=== PATIENT | female | born 1950 | race Caucasian/White ===

== ENCOUNTER 2020-01-31 12:17 | Outpatient (CLI) | payer MEDICARE, SELFPAY ==
--- NOTE | 2020-01-31 12:50 | ECHO_ITS ---
Patient Info Name: Ioana Tate Age: 69 years : 1950 Gender: Female Ht: 66 in Wt: 238 lbs BSA: 2.29 m2 HR: 90 bpm BP: 150 / 80 mmHg Heart Rhythm: Sinus Rhythm Technical Quality: Good Exam Date: 01/31/2020 12:57 PM Exam Location: [facility] Patient Status: Outpatient Admit Date: 01/31/2020 Staff Ordering Physician: Cruz Momin DO Amusement Park Entertainer: Ameya Fox RDCS Attending Provider: Cruz Momin DO Referring Physician: Liliane HORAN; Exam Type: CA echo doppler color flow Study Info Indications I35.2 - Nonrheumatic aortic (valve) stenosis with insufficiency Complete two-dimensional, color flow and Doppler transthoracic echocardiogram is performed. History/Risk Factors Murmur. Summary 1. Complete two-dimensional, color flow and Doppler transthoracic echocardiogram is performed. 2. Left ventricular chamber dimension is normal. 3. Left ventricular systolic function is normal, estimated at 60-65%. 4. There is moderately increased left ventricular wall thickness. 5. The left ventricular diastolic function is grade I diastolic dysfunction. 6. E/e' 7 is not elevated. 7. Left atrial chamber dimension is mildly enlarged. 8. There is severe aortic valve sclerosis. 9. There is moderate aortic valve stenosis with a peak velocity of 261 cm/s, mean gradient of 15 mmHg, and aortic valve area of 1.3 cm2. 10. There is trace aortic valve regurgitation. 11. The mitral valve has moderately calcified annulus. 12. There is trace tricuspid valve regurgitation. 13. Moderate pulmonary hypertension, estimated pulmonary arterial systolic pressure is 50 mmHg. 14. There is trace pulmonic regurgitation. Left Ventricle E/e' 7 is not elevated. Left ventricular chamber dimension is normal. Left ventricular systolic function is normal, estimated at 60-65%. There is moderately increased left ventricular wall thickness. The left ventricular diastolic function is grade I diastolic dysfunction. Right Ventricle Right ventricular chamber dimension is normal. Right ventricular systolic function is normal. Left Atria Left atrial chamber dimension is mildly enlarged. Right Atria Right atrial chamber dimension is normal. Aortic Valve The aortic valve is trileaflet. There is severe aortic valve sclerosis. There is moderate aortic valve stenosis with a peak velocity of 261 cm/s, mean gradient of 15 mmHg, and aortic valve area of 1.3 cm2. There is trace aortic valve regurgitation. Pulmonic Valve There is trace pulmonic regurgitation. Mitral Valve The mitral valve has moderately calcified annulus. There is no mitral valve stenosis. There is no mitral valve regurgitation. Tricuspid Valve There is trace tricuspid valve regurgitation. Moderate pulmonary hypertension, estimated pulmonary arterial systolic pressure is 50 mmHg. Pericardium/Pleural There is no pericardial effusion. Inferior Vena Cava Normal inferior vena cava with >50% collapse upon inspiration consistent with normal right atrial pressure, 5 mmHg. Aorta The aortic root size at the sinus of Valsalva is normal. Left Ventricular Outflow Tract Name Value Normal LVOT 2D LVOT Diameter 2.0 cm
== END 2020-01-31 12:18 | disposition home or self-care (01) ==
PROVIDERS: PCP Internal Medicine; Visit Provider Internal Medicine
DX: I35.2 Nonrheumatic aortic (valve) stenosis with insufficiency (principal); I27.20 Pulmonary hypertension, unspecified
CPT/HCPCS: 93306

== ENCOUNTER 2020-03-17 09:40 | Outpatient (CLI) | payer MEDICARE, SELFPAY ==
[2020-03-17 10:08] LABS: Anion Gap 8 mmol/L (8-16); Blood Urea Nitrogen 21 mg/dL (7-17); Calcium 9.9 mg/dL (8.4-10.2); Carbon Dioxide 26 mmol/L (22-30); Chloride 105 mmol/L (98-107); Estimated Glomerular Filt Rate 40; Glucose 102 mg/dL (65-105); Potassium 4.5 mmol/L (3.4-5.0); Sodium 139 mmol/L (137-145)
== END 2020-03-17 09:41 | disposition home or self-care (01) ==
PROVIDERS: PCP Internal Medicine; Visit Provider Clinical Nurse Specialist
DX: N18.9 Chronic kidney disease, unspecified (principal); I12.9 Hypertensive chronic kidney disease with stage 1 through stage 4 chronic kidney disease, or unspecified chronic kidney disease
CPT/HCPCS: 36415; 80048

== ENCOUNTER 2020-06-14 09:08 | Outpatient (CLI) | payer MEDICARE, SELFPAY ==
[2020-06-14 09:27] LABS: Basophils Absolute Auto 0.1 K/mm3 (0.0-0.1); Basophils Percent Auto 0.9 % (0.2-1.2); Eosinophils Absolute Auto 0.3 K/mm3 (0-0.3); Eosinophils Percent Auto 3.3 % (0-4.4); Hematocrit 39.2 % (37.0-47.0); Hemoglobin 12.9 g/dL (12.0-15.0); Immature Granulocyte Absolute 0.04 K/mm3 (0.00-0.031); Immature Granulocyte Percent A 0.5 % (0-0.5); Lymphocytes Absolute Auto 1.32 K/mm3 (0.9-3.2); Lymphocytes Percent Auto 15.1 % (18.3-44.2); Mean Corpuscular HGB Conc 32.9 g/dl (32-36); Mean Corpuscular Hemoglobin 31.6 pg (26-34); Mean Corpuscular Volume 96.1 fl (80-100); Mean Platelet Volume 8.8 fl (7.4-10.4); Monocytes Absolute Auto 0.9 K/mm3 (0.1-0.6); Neutrophils Absolute Auto 6.2 K/mm3 (1.3-6.7); Neutrophils Percent Auto 70.2 % (45.5-73.1); Platelet Count Result 312 k/mm3 (150-375); Red Blood Count 4.08 M/mm3 (4.2-5.4); Red Cell Distribution Width 13.7 % (11.5-14.5); White Blood Count 8.8 K/mm3 (4.5-10.0)
[2020-06-14 10:16] LABS: Thyroid Stimulating Hormone 0.985 uIU/mL (0.465-4.680)
== END 2020-06-14 09:09 | disposition home or self-care (01) ==
PROVIDERS: PCP Internal Medicine; Visit Provider Internal Medicine
DX: E03.9 Hypothyroidism, unspecified (principal); N18.9 Chronic kidney disease, unspecified; K31.819 Angiodysplasia of stomach and duodenum without bleeding
CPT/HCPCS: 36415; 84443; 85025

== ENCOUNTER 2020-09-01 08:38 | Outpatient (CLI) | payer MEDICARE, SELFPAY ==
[2020-09-01 09:03] LABS: Anion Gap 7 mmol/L (8-16); Blood Urea Nitrogen 21 mg/dL (7-17); Calcium 9.8 mg/dL (8.4-10.2); Carbon Dioxide 26 mmol/L (22-30); Chloride 108 mmol/L (98-107); Cholesterol 171 mg/dL (0-200); Estimated Glomerular Filt Rate 40; Glucose 102 mg/dL (65-105); HDL Direct 40 mg/dL; Potassium 4.6 mmol/L (3.4-5.0); Sodium 141 mmol/L (137-145); Triglycerides 143 mg/dL (<150)
[2020-09-01 09:13] LABS: LDL Cholesterol Direct 93 mg/dL
== END 2020-09-01 08:39 | disposition home or self-care (01) ==
PROVIDERS: PCP Internal Medicine; Visit Provider Internal Medicine
DX: N18.9 Chronic kidney disease, unspecified (principal); I35.0 Nonrheumatic aortic (valve) stenosis
CPT/HCPCS: 36415; 80048; 80061

== ENCOUNTER 2021-01-19 08:25 | Outpatient (CLI) | payer MEDICARE, SELFPAY ==
[2021-01-19 09:01] LABS: Basophils Absolute Auto 0.1 K/mm3 (0.0-0.1); Basophils Percent Auto 0.7 % (0.2-1.2); Eosinophils Absolute Auto 0.3 K/mm3 (0-0.3); Eosinophils Percent Auto 4.1 % (0-4.4); Hematocrit 38.6 % (37.0-47.0); Hemoglobin 12.4 g/dL (12.0-15.0); Immature Granulocyte Absolute 0.02 K/mm3 (0.00-0.031); Immature Granulocyte Percent A 0.2 % (0-0.5); Lymphocytes Absolute Auto 1.34 K/mm3 (0.9-3.2); Mean Corpuscular HGB Conc 32.1 g/dl (32-36); Mean Corpuscular Hemoglobin 31.3 pg (26-34); Mean Corpuscular Volume 97.5 fl (80-100); Mean Platelet Volume 8.8 fl (7.4-10.4); Monocytes Absolute Auto 0.9 K/mm3 (0.1-0.6); Monocytes Percent Auto 11.1 % (2.6-8.5); Neutrophils Absolute Auto 5.7 K/mm3 (1.3-6.7); Neutrophils Percent Auto 67.9 % (45.5-73.1); Platelet Count Result 297 k/mm3 (150-375); Red Blood Count 3.96 M/mm3 (4.2-5.4); Red Cell Distribution Width 13.7 % (11.5-14.5); White Blood Count 8.4 K/mm3 (4.5-10.0)
[2021-01-19 09:16] LABS: Alanine Aminotransferase 8 U/L (4-35); Albumin Level 4.3 g/dL (3.5-5.1); Alkaline Phosphatase 56 U/L (38-126); Anion Gap 10 mmol/L (8-16); Aspartate Amino Transferase 22 U/L (14-36); Bilirubin,Total 0.7 mg/dL (0.2-1.3); Blood Urea Nitrogen 24 mg/dL (7-17); Calcium 9.9 mg/dL (8.4-10.2); Carbon Dioxide 21 mmol/L (22-30); Chloride 107 mmol/L (98-107); Estimated Glomerular Filt Rate 40; Glucose 103 mg/dL (65-110); Potassium 4.8 mmol/L (3.4-5.0); Sodium 138 mmol/L (137-145)
== END 2021-01-19 08:26 | disposition home or self-care (01) ==
PROVIDERS: PCP Internal Medicine; Visit Provider Internal Medicine
DX: N18.9 Chronic kidney disease, unspecified (principal); D64.9 Anemia, unspecified
CPT/HCPCS: 36415; 80053; 85025

== ENCOUNTER 2021-07-13 08:38 | Outpatient (CLI) | payer MEDICARE, SELFPAY ==
[2021-07-13 09:39] LABS: Basophils Absolute Auto 0.1 K/mm3 (0.0-0.1); Eosinophils Absolute Auto 0.4 K/mm3 (0-0.3); Eosinophils Percent Auto 4.6 % (0-4.4); Hematocrit 39.8 % (37.0-47.0); Hemoglobin 12.8 g/dL (12.0-15.0); Immature Granulocyte Absolute 0.02 K/mm3 (0.00-0.031); Immature Granulocyte Percent A 0.2 % (0-0.5); Lymphocytes Absolute Auto 1.27 K/mm3 (0.9-3.2); Lymphocytes Percent Auto 15.6 % (18.3-44.2); Mean Corpuscular HGB Conc 32.2 g/dl (32-36); Mean Corpuscular Hemoglobin 31.2 pg (26-34); Mean Corpuscular Volume 97.1 fl (80-100); Mean Platelet Volume 9.5 fl (7.4-10.4); Monocytes Absolute Auto 0.8 K/mm3 (0.1-0.6); Monocytes Percent Auto 10.1 % (2.6-8.5); Neutrophils Absolute Auto 5.6 K/mm3 (1.3-6.7); Neutrophils Percent Auto 68.5 % (45.5-73.1); Platelet Count Result 316 k/mm3 (150-375); Red Cell Distribution Width 13.6 % (11.5-14.5); White Blood Count 8.1 K/mm3 (4.5-10.0)
[2021-07-13 09:52] LABS: Alanine Aminotransferase 8 U/L (4-35); Albumin Level 4.3 g/dL (3.5-5.1); Alkaline Phosphatase 63 U/L (38-126); Anion Gap 11 mmol/L (8-16); Aspartate Amino Transferase 24 U/L (14-36); Bilirubin,Total 0.7 mg/dL (0.2-1.3); Blood Urea Nitrogen 24 mg/dL (7-17); Calcium 9.3 mg/dL (8.4-10.2); Carbon Dioxide 22 mmol/L (22-30); Chloride 107 mmol/L (98-107); Cholesterol 180 mg/dL (0-200); Estimated Glomerular Filt Rate 40; Glucose 93 mg/dL (65-110); HDL Direct 38 mg/dL; Potassium 4.7 mmol/L (3.4-5.0); Sodium 140 mmol/L (137-145); Triglycerides 144 mg/dL (<150)
[2021-07-13 10:03] LABS: LDL Cholesterol Direct 97 mg/dL
[2021-07-13 10:20] LABS: Thyroid Stimulating Hormone 0.645 uIU/mL (0.465-4.680)
[2021-07-13 10:25] LABS: Vitamin D 25 Hydroxy 38.2 ng/mL
== END 2021-07-13 08:39 | disposition home or self-care (01) ==
PROVIDERS: PCP Internal Medicine; Visit Provider Internal Medicine
DX: N18.32 Chronic kidney disease, stage 3b (principal); I35.0 Nonrheumatic aortic (valve) stenosis; E03.9 Hypothyroidism, unspecified; D64.9 Anemia, unspecified; E55.9 Vitamin D deficiency, unspecified
CPT/HCPCS: 36415; 80053; 80061; 82306; 84443; 85025

== ENCOUNTER 2022-01-18 09:04 | Outpatient (CLI) | payer MEDICARE, SELFPAY ==
[2022-01-18 09:22] LABS: Basophils Absolute Auto 0.1 K/mm3 (0.0-0.1); Basophils Percent Auto 1.1 % (0.2-1.2); Eosinophils Absolute Auto 0.4 K/mm3 (0-0.3); Eosinophils Percent Auto 3.8 % (0-4.4); Hematocrit 40.9 % (37.0-47.0); Hemoglobin 13.3 g/dL (12.0-15.0); Immature Granulocyte Absolute 0.03 K/mm3 (0.00-0.031); Immature Granulocyte Percent A 0.3 % (0-0.5); Lymphocytes Absolute Auto 1.31 K/mm3 (0.9-3.2); Lymphocytes Percent Auto 14.3 % (18.3-44.2); Mean Corpuscular HGB Conc 32.5 g/dl (32-36); Mean Corpuscular Hemoglobin 31.1 pg (26-34); Mean Corpuscular Volume 95.6 fl (80-100); Mean Platelet Volume 9.1 fl (7.4-10.4); Monocytes Absolute Auto 0.9 K/mm3 (0.1-0.6); Monocytes Percent Auto 9.4 % (2.6-8.5); Neutrophils Absolute Auto 6.5 K/mm3 (1.3-6.7); Neutrophils Percent Auto 71.1 % (45.5-73.1); Platelet Count Result 323 k/mm3 (150-375); Red Blood Count 4.28 M/mm3 (4.2-5.4); Red Cell Distribution Width 14.2 % (11.5-14.5); White Blood Count 9.2 K/mm3 (4.5-10.0)
[2022-01-18 09:43] LABS: Alanine Aminotransferase 9 U/L (6-35); Albumin Level 4.3 g/dL (3.5-5.1); Alkaline Phosphatase 58 U/L (38-126); Anion Gap 15 mmol/L (8-16); Aspartate Amino Transferase 18 U/L (14-36); Bilirubin,Total 0.8 mg/dL (0.2-1.3); Blood Urea Nitrogen 20 mg/dL (7-17); Calcium 9.2 mg/dL (8.4-10.2); Carbon Dioxide 21 mmol/L (22-30); Chloride 104 mmol/L (98-107); Estimated Glomerular Filt Rate 34; Glucose 106 mg/dL (65-110); Potassium 4.4 mmol/L (3.4-5.0); Sodium 140 mmol/L (137-145)
[2022-01-18 10:12] LABS: Thyroid Stimulating Hormone 0.112 uIU/mL (0.465-4.680)
== END 2022-01-18 09:05 | disposition home or self-care (01) ==
LOC: ANHLAB 09:05
PROVIDERS: PCP Internal Medicine; Visit Provider Internal Medicine
DX: K31.819 Angiodysplasia of stomach and duodenum without bleeding (principal); N18.32 Chronic kidney disease, stage 3b; E03.9 Hypothyroidism, unspecified
CPT/HCPCS: 36415; 80053; 84443; 85025

== ENCOUNTER 2022-03-05 08:30 | Outpatient (CLI) | payer MEDICARE, SELFPAY ==
[2022-03-05 09:12] LABS: Anion Gap 14 mmol/L (8-16); Blood Urea Nitrogen 17 mg/dL (7-17); Calcium 8.7 mg/dL (8.4-10.2); Carbon Dioxide 24 mmol/L (22-30); Chloride 100 mmol/L (98-107); Estimated Glomerular Filt Rate 40; Glucose 105 mg/dL (65-110); Potassium 3.8 mmol/L (3.4-5.0); Sodium 138 mmol/L (137-145)
[2022-03-05 09:24] LABS: Add Urine Microscopic? YES; Appearance Urine Cloudy (Clear); Bacteria Urine 4+ /hpf; Bilirubin Urine Negative (Negative); Blood Urine Negative (Negative); Color Urine Yellow (Yellow); Glucose Urine UA Negative (Negative); Ketones Urine Negative (Negative); Leukocyte Esterase Ur 3+ LEU/UL (NEGATIVE); Mucus Urine Rare /lpf; Nitrate Urine Negative (Negative); Protein Urine Negative (Negative); Specific Grav Ur 1.014 (1.001-1.035); Squamous Epithelial Cell Urine Few /hpf (Few); Urobilinogen Urine Negative mg/dL (<2.0); WBC Clumps Urine Present /HPF; WBC Urine >75 /hpf (0-3)
[2022-03-05 10:20] LABS: Hepatitis C Virus Antibody Negative (Negative)
[2022-03-07 19:01] LABS: Albumin 3.6 g/dL (3.8-4.8); Alpha 1 Globulin 0.5 g/dL (0.2-0.3); Alpha 2 Globulin 1.2 g/dL (0.5-0.9); Beta 1 Globulin 0.4 g/dL (0.4-0.6); Gamma Globulin 1.5 g/dL (0.8-1.7); Protein, Total 7.5 g/dL (6.1-8.1)
== END 2022-03-05 08:31 | disposition home or self-care (01) ==
LOC: ANHLAB 08:32
PROVIDERS: PCP Internal Medicine; Visit Provider Internal Medicine
DX: N18.9 Chronic kidney disease, unspecified (principal)
CPT/HCPCS: 36415; 80048; 81001; 82570; 84155; 84156; 84165; 84166; 86803

== ENCOUNTER 2022-03-06 07:37 | Outpatient (NON) | payer MEDICARE, SELFPAY ==
[2022-03-11 15:55] LABS: Total Protein/Creatinine Ratio 275 mg/g creat (24-184)
[2022-03-15 14:34] LABS: Creatinine, Random Urine 40 mg/dL
== END 2022-03-06 07:38 | disposition home or self-care (01) ==
LOC: ANHLAB 07:42
PROVIDERS: PCP Internal Medicine; Visit Provider Internal Medicine
DX: N18.9 Chronic kidney disease, unspecified (principal)
CPT/HCPCS: 82570; 84156; 84166

== ENCOUNTER 2022-03-06 07:56 | Outpatient (CLI) | payer MEDICARE, SELFPAY ==
--- NOTE | ~2022-03-06 | US_ITS ---
EXAMINATION: US retroperitoneal duplex ltd DATE: 03/06/2022 11:52 CDT INDICATION: Accelerated hypertension. TECHNIQUE: Sonographic imaging of the kidneys was performed with a 3.5 MHz transducer. Retroperitone al duplex sonogram of the renal arteries also obtained. FINDINGS: No focal flow abnormalities are seen in the renal arteries on color Doppler. The peak syst olic velocity ranges of the right and left renal arteries and aorta are 81 cm per second, 87 cm per s econd, and 111 cm per second, respectively. The velocities and renal to aortic ratios are within norm al limits. IMPRESSION: 1. No Doppler evidence of renal artery stenosis. Reviewed, dictated and finalized at location B.
== END 2022-03-06 07:57 | disposition home or self-care (01) ==
PROVIDERS: PCP Internal Medicine; Visit Provider Nurse Practitioner
DX: I10 Essential (primary) hypertension (principal); R60.0 Localized edema; R79.89 Other specified abnormal findings of blood chemistry
CPT/HCPCS: 82570; 84156; 84166; 93976

== ENCOUNTER 2022-06-05 08:06 | Outpatient (CLI) | payer MEDICARE, SELFPAY ==
--- NOTE | 2022-06-30 21:32 | WPDSLEEPSTUD ---
Sleep Study Date of Study: 06/05/22 Ordering Provider: Cruz Momin DO Interpreting Physician: Eve Lopez DO Sleep Study Type: Polysomnogram Height: 1.68 m Weight: 83.461 kg Body Mass Index: 29.7 Neck Circumference (inches): 16 [place]: 3 Reason for Sleep Study Loud snoring, frequent nighttime awakenings Sleep History The patient is a 72 year female with hypertension, hypothyroidism, anemia, aortic stenosis, chronic kidney disease, pulmonary hypertension and history of tobacco use that had a sleep study ordered by her primary care for evaluation of sleep apnea. The patient denies awakening from sleep short of breath. She denies awakening at night with heartburn, belching or cough. She occasionally snores loudly enough that others complain. She rarely has trouble sleeping when she has a cold. She denies waking up gasping for air throughout the night. She denies having breathing problems at night observed by herself or others. She denies sweating excessively at night. She denies having heart palpitations or irregular heartbeats during the night. She denies falling asleep during the day and while driving. She denies sleep paralysis, cataplexy and hypnagogic / hypnopompic hallucinations. He denies having trouble at school or work due to sleepiness. She denies stool was freed of going to sleep. She rarely has nightmares. She denies remembering her dreams. She frequently has thoughts racing through her mind. She occasionally feels sad or depressed. She frequently has anxiety. She rarely has muscular tension. She rarely notices parts of her body jerk. He denies kicking during the night. She occasionally has crawling and aching feelings in her legs and occasionally has leg pain during the night. She denies grinding her teeth during sleep and denies awakening with morning jaw pain. She is occasionally bothered by pain during the day but never awakened by pain during the night. She occasionally wakes up feeling stiff in the morning. She rarely wakes up with sore or achy muscles. She rarely wakes up with pain in the neck, spine or other joints She goes to bed at 9:30 p.m. on both weekdays and weekends. She wakes up 3-4 times throughout the night for unknown reasons. It takes her to 30 minutes to fall back asleep. She wakes up at 5:00 a.m. on both weekdays and weekends. She typically gets 5 to 5-1/2 hours of sleep per night. She will stay in bed for 40-45 minutes after waking up in the morning. She currently lives with her . She does not consume any caffeinated beverages within 2 hours of bedtime. She does not engage in physical exercise before bedtime. She will watch television before falling asleep. She will occasionally take naps in the afternoon or the evening and they are refreshing. She drinks 4 caffeinated beverages per day. She is a former smoker. She denies alcohol and recreational drug use. [facility] Past Medical History Medical History Anemia Aortic valve stenosis CKD (chronic kidney disease) GAVE (gastric antral vascular ectasia) Heart murmur Hypothyroidism, unspecified Pulmonary hypertension Family History Family History Mother Cerebrovascular accident Sibling Cerebrovascular accident Father Family history of primary malignant neoplasm of liver Daughter Hypertension Social History Social History Smoking status: Former smoker Smoking end date: 05/12/1968 Alcohol intake: never Lack of Transportation: No Lack of Food: Never True Current Housing: I Have Housing Concerned About Future Housing: No Difficulty Paying Gas/Electric Bills: No Difficulty Paying for Meds: No Currently Unemployed: No Education: High School Diploma/GED Difficulty w/ Childcare or Family Care: No Gender identity (i
[2022-06-30 21:53] VITALS: BMI 29.7
--- NOTE | 2022-09-13 09:49 | SLEEP ---
new calls [phone]
== END 2022-06-06 07:13 | disposition home or self-care (01) ==
LOC: ANHCSM 08:07
PROVIDERS: PCP Internal Medicine; Visit Provider Internal Medicine
DX: G47.10 Hypersomnia, unspecified (principal); I27.20 Pulmonary hypertension, unspecified; G47.33 Obstructive sleep apnea (adult) (pediatric)
CPT/HCPCS: 95810

== ENCOUNTER 2022-06-13 08:33 | Outpatient (CLI) | payer MEDICARE, SELFPAY ==
--- NOTE | ~2022-06-13 | XR_ITS ---
Clinical Indication: Hypertension PA and lateral views of the chest: Comparison: 11/14/2014 Findings: The lungs are clear, without evidence of focal consolidation or pleural effusion. Cardiome diastinal silhouette is within normal limits. Bones and soft tissues are unremarkable. Impression: Normal chest. Reviewed, dictated and finalized at [facility]. EYOR HYDROGRAPHIC Impression: Normal chest.
--- NOTE | ~2022-06-13 | US_ITS ---
Renal-Bladder ultrasound Clinical History: Chronic kidney disease Technique: Real-time sonographic imaging of the kidneys and urinary bladder was performed. Findings: The right kidney measures 8.1 cm in length and the left kidney measures 10.2 cm. There is n o hydronephrosis or renal calculus identified. Renal cortical echogenicity is increased. Simple right renal cysts noted. The urinary bladder is collapsed, limiting evaluation. Impression: Increased renal echogenicity is compatible with chronic medical renal disease. No hydronephrosis. Reviewed, dictated and finalized at location M. [employer] Impression: Increased renal echogenicity is compatible with chronic medical renal disease. No hydronephrosis.
[2022-06-13 09:10] LABS: Add Urine Microscopic? YES; Appearance Urine Slightly Cloudy (Clear); Bilirubin Urine Negative (Negative); Blood Urine Trace-intact (Negative); Color Urine Yellow (Yellow); Glucose Urine UA Negative (Negative); Ketones Urine Negative (Negative); Leukocyte Esterase Ur 3+ LEU/UL (NEGATIVE); Nitrate Urine Negative (Negative); Protein Urine 1+ mg/dL (Negative)
[2022-06-13 09:15] LABS: Bacteria Urine Trace /hpf; Mucus Urine Rare /lpf; Squamous Epithelial Cell Urine Occasional /hpf (Few); WBC Urine >75 /hpf (0-3)
[2022-06-13 09:16] LABS: Hematocrit 46.1 % (37.0-47.0); Hemoglobin 14.8 g/dL (12.0-15.0); Mean Corpuscular HGB Conc 32.1 g/dl (32-36); Mean Corpuscular Hemoglobin 30.7 pg (26-34); Mean Corpuscular Volume 95.6 fl (80-100); Mean Platelet Volume 9.7 fl (7.4-10.4); Platelet Count Result 360 k/mm3 (150-375); Red Blood Count 4.82 M/mm3 (4.2-5.4); Red Cell Distribution Width 14.7 % (11.5-14.5); White Blood Count 10.2 K/mm3 (4.5-10.0)
[2022-06-13 09:31] LABS: Albumin Level 4.3 g/dL (3.5-5.1); Anion Gap 7 mmol/L (8-16); Blood Urea Nitrogen 18 mg/dL (7-17); Calcium 8.8 mg/dL (8.4-10.2); Carbon Dioxide 27 mmol/L (22-30); Chloride 99 mmol/L (98-107); Estimated Glomerular Filt Rate 49; Glucose 98 mg/dL (65-110); Phosphorus 3.3 mg/dL (2.5-4.5); Potassium 3.8 mmol/L (3.4-5.0); Sodium 133 mmol/L (137-145)
[2022-06-13 09:32] LABS: Total Protein Urine Random 21 mg/dL; Ur Ttl Prot Creatinine Ratio 0.23 mg/mg (0-0.20)
[2022-06-13 09:36] LABS: Complement C3 118 mg/dL (88-165)
[2022-06-13 09:46] LABS: Erythrocyte Sedimentation Rate 16 mm/hr (0-20)
[2022-06-13 09:55] LABS: Parathyroid Intact 215.8 pg/mL (7.5-53.5)
[2022-06-16 07:21] LABS: Kappa\\Lambda Light Chains 1.69 (0.26-1.65)
[2022-06-18 06:01] LABS: ANA Pattern Nuclear, Nucleolar; ANA Titer >=1:1280 (Negative)
[2022-06-19 19:39] LABS: Complement Total CH50 >60 U/mL (31-60)
== END 2022-06-13 08:34 | disposition home or self-care (01) ==
PROVIDERS: PCP Internal Medicine; Visit Provider Internal Medicine Nephrology
DX: I12.9 Hypertensive chronic kidney disease with stage 1 through stage 4 chronic kidney disease, or unspecified chronic kidney disease (principal); N18.32 Chronic kidney disease, stage 3b
CPT/HCPCS: 36415; 71046; 76775; 80069; 81001; 82570; 83883; 83970; 84156; 85027; 85652; 86038; 86039; 86160; 86162; 86334

== ENCOUNTER 2022-06-15 08:24 | Outpatient (CLI) | payer MEDICARE, SELFPAY ==
[2022-06-21 21:47] LABS: Albumin 45 %; Creat 24 Hr 0.51 g/24 h (0.50-2.15); Measured Kappa Chains 2.25 mg/dL (<2.00); Measured Lambda Chains <1.00 mg/dL (<2.00); Pro/Creat Ratio 386 mg/g creat (<150); Protein,total, 24 Hr Ur 196 mg/24 h (<150); Total Kappa Chains 15.75 mg/24 h
== END 2022-06-15 08:25 | disposition home or self-care (01) ==
PROVIDERS: PCP Internal Medicine; Visit Provider Internal Medicine Nephrology
DX: N18.32 Chronic kidney disease, stage 3b (principal)
CPT/HCPCS: 86335

== ENCOUNTER 2022-06-24 10:43 | Outpatient (CLI) | payer MEDICARE, SELFPAY | END 2022-06-24 10:44 | disposition home or self-care (01) | PROVIDERS: PCP Internal Medicine; Visit Provider Internal Medicine Nephrology | DX: R82.81 Pyuria (principal) | CPT/HCPCS: 87077; 87086; 87186 ==

== ENCOUNTER 2022-08-05 08:20 | Outpatient (CLI) | payer MEDICARE, SELFPAY ==
[2022-08-05 09:00] LABS: Appearance Urine Clear (Clear); Bacteria Urine None Seen /hpf; Bilirubin Urine Negative (Negative); Color Urine Yellow (Yellow); Glucose Urine UA Negative (Negative); Ketones Urine Negative (Negative); Leukocyte Esterase Ur 2+ LEU/UL (NEGATIVE); Nitrate Urine Negative (Negative); Non Pathogenic Casts 0-2; Protein Urine Negative (Negative); Specific Grav Ur 1.013 (1.001-1.035); Squamous Epithelial Cell Urine None seen /hpf (Few); WBC Urine 21-50 /hpf (0-3)
[2022-08-05 09:09] LABS: Albumin Level 4.1 g/dL (3.5-5.1); Anion Gap 9 mmol/L (8-16); Blood Urea Nitrogen 21 mg/dL (7-17); Calcium 9.1 mg/dL (8.4-10.2); Carbon Dioxide 26 mmol/L (22-30); Chloride 103 mmol/L (98-107); Estimated Glomerular Filt Rate 40; Glucose 100 mg/dL (65-110); Phosphorus 3.7 mg/dL (2.5-4.5); Potassium 4.6 mmol/L (3.4-5.0); Sodium 138 mmol/L (137-145)
[2022-08-05 09:09] LABS: Add Urine Microscopic? YES
[2022-08-05 09:13] LABS: Creatinine Urine 74.9 mg/dL; Total Protein Urine Random 16 mg/dL; Ur Ttl Prot Creatinine Ratio 0.21 mg/mg (0-0.20)
[2022-08-05 10:09] LABS: Rheumatoid Factor < 8.6 IU/ML (<12)
[2022-08-09 17:44] LABS: SM Antibody <1.0; SM/RNP Antibody <1.0
[2022-08-09 18:19] LABS: SS-A >8.0; SS-B <1.0
[2022-08-10 01:46] LABS: ANCA Screen Negative (Negative)
[2022-08-10 09:11] LABS: Anti Glomerular Basement Memb <1.0 AI (<1.0)
[2022-08-13 06:19] LABS: ANA Pattern Nuclear, Nucleolar; ANA Titer >=1:1280 (Negative); Anti Nuclear Antibody Pattern Nuclear, Speckled
== END 2022-08-05 08:21 | disposition home or self-care (01) ==
PROVIDERS: PCP Internal Medicine; Visit Provider Internal Medicine Nephrology
DX: R76.0 Raised antibody titer (principal); R82.81 Pyuria; E21.1 Secondary hyperparathyroidism, not elsewhere classified; I12.9 Hypertensive chronic kidney disease with stage 1 through stage 4 chronic kidney disease, or unspecified chronic kidney disease; N18.32 Chronic kidney disease, stage 3b
CPT/HCPCS: 36415; 80069; 81001; 82570; 83520; 84156; 86036; 86038; 86039; 86225; 86235; 86430

== ENCOUNTER 2022-08-08 08:09 | Outpatient (CLI) | payer MEDICARE, SELFPAY | END 2022-08-08 08:10 | disposition home or self-care (01) | LOC: ANHLAB 08:10 | PROVIDERS: PCP Internal Medicine; Visit Provider Internal Medicine Nephrology | DX: R82.81 Pyuria (principal) | CPT/HCPCS: 87086; 87088 ==

== ENCOUNTER 2022-08-29 08:15 | Outpatient (CLI) | payer MEDICARE, SELFPAY ==
--- NOTE | 2022-09-23 16:14 | WPDSLEEPSTUD ---
Sleep Study Date of Study: 08/29/22 Ordering Provider: Cruz Momin DO Interpreting Physician: Eve Lopez DO Sleep Study Type: CPAP Titration Height: 1.68 m Weight: 77.111 kg Body Mass Index: 27.4 Neck Circumference (inches): 16 [place]: 3 Reason for Sleep Study She had a polysomnogram on 06/05/2022 that showed an overall AHI of 41/9 with desaturation down to 83%. Sleep History The patient is a 72 year female with hypertension, hypothyroidism, anemia, aortic stenosis, chronic kidney disease, pulmonary hypertension and history of tobacco use that had a sleep study ordered by her primary care for evaluation of sleep apnea.? The patient denies awakening from sleep short of breath.? She denies awakening at night with heartburn, belching or cough.? She occasionally snores loudly enough that others complain.? She rarely has trouble sleeping when she has a cold.? She denies waking up gasping for air throughout the night.? She denies having breathing problems at night observed by herself or others.? She denies sweating excessively at night.? She denies having heart palpitations or irregular heartbeats during the night.? She denies falling asleep during the day and while driving.? She denies sleep paralysis, cataplexy and hypnagogic / hypnopompic hallucinations.? He denies having trouble at school or work due to sleepiness.? She denies stool was freed of going to sleep.? She rarely has nightmares.? She denies remembering her dreams.? She frequently has thoughts racing through her mind.? She occasionally feels sad or depressed.? She frequently has anxiety.? She rarely has muscular tension.? She rarely notices parts of her body jerk.? He denies kicking during the night.? She occasionally has crawling and aching feelings in her legs and occasionally has leg pain during the night.? She denies grinding her teeth during sleep and denies awakening with morning jaw pain.? She is occasionally bothered by pain during the day but never awakened by pain during the night.? She occasionally wakes up feeling stiff in the morning.? She rarely wakes up with sore or achy muscles.? She rarely wakes up with pain in the neck, spine or other joints She goes to bed at 9:30 p.m. on both weekdays and weekends.? She wakes up 3-4 times throughout the night for unknown reasons.? It takes her to 30 minutes to fall back asleep.? She wakes up at 5:00 a.m. on both weekdays and weekends.? She typically gets 5 to 5-1/2 hours of sleep per night.? She will stay in bed for 40-45 minutes after waking up in the morning.? She currently lives with her .? She does not consume any caffeinated beverages within 2 hours of bedtime.? She does not engage in physical exercise before bedtime.? She will watch television before falling asleep.? She will occasionally take naps in the afternoon or the evening and they are refreshing.? She drinks 4 caffeinated beverages per day.? She is a former smoker.? She denies alcohol and recreational drug use. [facility] Past Medical History Medical History Anemia Aortic valve stenosis CKD (chronic kidney disease) GAVE (gastric antral vascular ectasia) Heart murmur Hypothyroidism, unspecified Pulmonary hypertension Right heart failure due to pulmonary hypertension Family History Family History Mother Cerebrovascular accident Sibling Cerebrovascular accident Father Family history of primary malignant neoplasm of liver Daughter Hypertension Social History Social History Smoking status: Former smoker Smoking end date: 05/12/1968 Alcohol intake: never Lack of Transportation: No Lack of Food: Never True Current Housing: I Have Housing Concerned About Future Housing: No Difficulty Paying Gas/Electric Bills: No Difficulty Paying for Meds: No Currently Unemployed:
[2022-09-23 19:46] VITALS: BMI 27.4
== END 2022-08-30 06:07 | disposition home or self-care (01) ==
LOC: ANHCSM 08:16
PROVIDERS: PCP Internal Medicine; Visit Provider Internal Medicine
DX: G47.33 Obstructive sleep apnea (adult) (pediatric) (principal)
CPT/HCPCS: 95811

== ENCOUNTER 2022-10-09 08:17 | Outpatient (CLI) | payer MEDICARE, SELFPAY ==
[2022-10-09 08:49] LABS: Hematocrit 45.1 % (37.0-47.0); Hemoglobin 14.9 g/dL (12.0-15.0); Mean Corpuscular Volume 96.8 fl (80-100); Mean Platelet Volume 9.9 fl (7.4-10.4); Platelet Count Result 304 k/mm3 (150-375); Red Blood Count 4.66 M/mm3 (4.2-5.4); White Blood Count 8.6 K/mm3 (4.5-10.0)
[2022-10-09 10:07] LABS: Rheumatoid Factor < 12.0 IU/ML (<12)
[2022-10-12 13:16] LABS: SM Antibody <1.0; SM/RNP Antibody <1.0; SS-A >8.0; SS-B <1.0
[2022-10-15 06:08] LABS: ANA Pattern Nuclear, Nucleolar; ANA Titer >=1:1280 (Negative); Anti Nuclear Antibody Pattern Nuclear, Speckled
[2022-10-15 16:15] LABS: Anti Glomerular Basement Memb <1.0 AI (<1.0)
[2022-10-16 21:01] LABS: ANCA Screen Negative (Negative)
== END 2022-10-09 08:18 | disposition home or self-care (01) ==
LOC: ANHLAB 08:20
PROVIDERS: PCP Internal Medicine; Visit Provider Internal Medicine Nephrology
DX: E21.1 Secondary hyperparathyroidism, not elsewhere classified (principal); N18.32 Chronic kidney disease, stage 3b
CPT/HCPCS: 36415; 83520; 85027; 86036; 86038; 86039; 86225; 86235; 86430

== ENCOUNTER 2022-12-07 08:59 | Outpatient (CLI) | payer MEDICARE, SELFPAY ==
--- NOTE | ~2022-12-07 | CT_ITS ---
CT Scan of the Chest without Contrast: Clinical Indication: Dyspnea on exertion Technique: Contiguous sections were acquired throughout the chest without intravenous contrast. Dose reduction technique was used on this scan by utilizing automated exposure control and iterative recon struction technique. The dose-length product (DLP) was 146.83 mGy-cm. Findings: Prominent right paratracheal lymph node measures 11 mm in short axis. There are atherosclerotic calci fications of the aorta and coronary arteries. Small pericardial effusion present. There is no evidence of pleural or pericardial effusion. There is chronic interstitial disease, with diffuse subpleural reticulation, and peripheral interstit ial thickening with basilar predominance. Images through the upper abdomen reveal no abnormalities. There is DISH of the thoracic spine. Impression: Chronic interstitial disease, consistent with UIP. Small pericardial effusion. Reviewed, dictated and finalized at [facility]. Impression: Chronic interstitial disease, consistent with UIP. Small pericardial effusion.
== END 2022-12-07 09:00 | disposition home or self-care (01) ==
PROVIDERS: PCP Internal Medicine; Visit Provider Internal Medicine
DX: J84.9 Interstitial pulmonary disease, unspecified (principal); I31.39 Other pericardial effusion (noninflammatory); I27.20 Pulmonary hypertension, unspecified; R06.00 Dyspnea, unspecified; R06.89 Other abnormalities of breathing
CPT/HCPCS: 71250

== ENCOUNTER 2023-01-20 12:41 | Outpatient (CLI) | payer MEDICARE, SELFPAY ==
[2023-01-20 13:48] LABS: Hematocrit 42.6 % (37.0-47.0); Hemoglobin 13.9 g/dL (12.0-15.0); Mean Corpuscular HGB Conc 32.6 g/dl (32-36); Mean Corpuscular Hemoglobin 32.3 pg (26-34); Mean Corpuscular Volume 98.8 fl (80-100); Mean Platelet Volume 9.6 fl (7.4-10.4); Platelet Count Result 304 k/mm3 (150-375); Red Blood Count 4.31 M/mm3 (4.2-5.4); White Blood Count 8.6 K/mm3 (4.5-10.0)
[2023-01-20 14:03] LABS: Albumin Level 3.6 g/dL (3.5-5.1); Anion Gap 10 mmol/L (8-16); Blood Urea Nitrogen 29 mg/dL (7-17); Calcium 9.2 mg/dL (8.4-10.2); Carbon Dioxide 27 mmol/L (22-30); Chloride 98 mmol/L (98-107); Estimated Glomerular Filt Rate 32; Glucose 91 mg/dL (65-110); Phosphorus 3.4 mg/dL (2.5-4.5); Potassium 4.3 mmol/L (3.4-5.0); Sodium 135 mmol/L (137-145)
[2023-01-20 14:10] LABS: Total Protein Urine Random 16 mg/dL; Ur Ttl Prot Creatinine Ratio 0.23 mg/mg (0-0.20)
[2023-01-20 14:12] LABS: Parathyroid Intact 222.5 pg/mL (7.5-53.5)
== END 2023-01-20 12:42 | disposition home or self-care (01) ==
LOC: ANHLAB 12:43
PROVIDERS: PCP Internal Medicine; Visit Provider Internal Medicine Nephrology
DX: E21.1 Secondary hyperparathyroidism, not elsewhere classified (principal); R94.4 Abnormal results of kidney function studies
CPT/HCPCS: 36415; 80069; 82570; 83970; 84156; 85027

== ENCOUNTER 2023-01-30 08:05 | Outpatient (CLI) | payer MEDICARE, SELFPAY ==
[2023-01-30 09:07] LABS: Basophils Absolute Auto 0.1 K/mm3 (0.0-0.1); Eosinophils Absolute Auto 0.1 K/mm3 (0-0.3); Hemoglobin 14.3 g/dL (12.0-15.0); Immature Granulocyte Absolute 0.04 K/mm3 (0.00-0.031); Immature Granulocyte Percent A 0.4 % (0-0.5); Lymphocytes Percent Auto 12.4 % (18.3-44.2); Mean Corpuscular HGB Conc 32.5 g/dl (32-36); Mean Corpuscular Hemoglobin 31.8 pg (26-34); Mean Platelet Volume 9.4 fl (7.4-10.4); Monocytes Absolute Auto 0.7 K/mm3 (0.1-0.6); Monocytes Percent Auto 7.9 % (2.6-8.5); Neutrophils Absolute Auto 6.9 K/mm3 (1.3-6.7); Neutrophils Percent Auto 77.3 % (45.5-73.1); Platelet Count Result 308 k/mm3 (150-375); Red Blood Count 4.49 M/mm3 (4.2-5.4); Red Cell Distribution Width 15.1 % (11.5-14.5); White Blood Count 8.9 K/mm3 (4.5-10.0)
[2023-01-30 09:21] LABS: Alanine Aminotransferase 12 U/L (6-35); Albumin Level 4.1 g/dL (3.5-5.1); Alkaline Phosphatase 65 U/L (38-126); Anion Gap 7 mmol/L (8-16); Aspartate Amino Transferase 24 U/L (14-36); Bilirubin,Total 1.4 mg/dL (0.2-1.3); Blood Urea Nitrogen 34 mg/dL (7-17); Calcium 9.2 mg/dL (8.4-10.2); Carbon Dioxide 31 mmol/L (22-30); Chloride 97 mmol/L (98-107); Cholesterol 147 mg/dL (0-200); Estimated Glomerular Filt Rate 32; Glucose 90 mg/dL (65-110); HDL Direct 48 mg/dL; Potassium 4.1 mmol/L (3.4-5.0); Sodium 135 mmol/L (137-145); Triglycerides 99 mg/dL (<150)
[2023-01-30 09:31] LABS: LDL Cholesterol Direct 74 mg/dL
[2023-01-30 09:49] LABS: Thyroid Stimulating Hormone 0.038 uIU/mL (0.465-4.680)
[2023-01-30 09:50] LABS: Free T4 Free Thyroxine 2.26 ng/mL (0.78-2.19)
== END 2023-01-30 08:06 | disposition home or self-care (01) ==
LOC: ANHLAB 08:08
PROVIDERS: PCP Internal Medicine; Visit Provider Clinical Nurse Specialist
DX: I12.9 Hypertensive chronic kidney disease with stage 1 through stage 4 chronic kidney disease, or unspecified chronic kidney disease (principal); N18.32 Chronic kidney disease, stage 3b; E03.9 Hypothyroidism, unspecified
CPT/HCPCS: 36415; 80053; 80061; 84439; 84443; 85025

== ENCOUNTER 2023-02-06 07:34 | Outpatient (CLI) | payer MEDICARE, SELFPAY ==
--- NOTE | 2023-02-06 12:16 | P.PCNPFT_ITS ---
PFT Procedure Performed PFT Procedure Performed Plethysmography (Lung Vol) Diffusing Cap (DLCO) Flow Vol Loop Spirometry w/o Bronchodil PFT Interpretation This is a pulmonary function test with spirometry, plethysmography and diffusing capacity. The test was performed and results interpreted in accordance with the 2019 and 2005 ATS/ERS Task Force guidelines respectively using the Global Lung Function Initiative-2012 reference equations. Patient demonstrated good effort and cooperation. Reproducibility criteria were met. The quality of the spirometry maneuver was Grade B. Findings: Spirometry: There is decreased maximal expiratory airflow at all lung volumes. The contour the inspiratory flow tracing is truncated. The FVC is 2.20 L, 74% predicted. The FEV1 is 1.44 L, 63% predicted. The FEV1: FVC ratio 65%. Plethysmography: The total lung capacity is 3.74 L, 70% predicted. The functio nal residual capacity is 1.73 L, 56% predicted. The residual volume is 1.49 L, 63% predicted. Diffusing capacity: The diffusing capacity unadjusted for hemoglobin and carboxyhemoglobin is 6.2, 29% predicted. The diffusing capacity adjusted for alveolar volume is 1.85, 45% predicted. Impression: There is a combined obstructive and restrictive ventilatory abnormality. There are no guidelines to assign the severity of obstruction and restriction with a combined abnormality. In my opinion, given the mildly decreased FEV1: FVC ratio and mild restrictive abnormality I would state there is a mild obstructive abnormality and a mild restrictive abnormality resulting in a moderate decrease in the FEV1. The diffusing capacity unadjusted for hemoglobin and carboxyhemoglobin is severely decreased and remains moderately decreased when adjusted for alveolar volume. There are no prior studies for comparison
== END 2023-02-06 07:35 | disposition home or self-care (01) ==
PROVIDERS: PCP Internal Medicine; Visit Provider Internal Medicine
DX: I27.20 Pulmonary hypertension, unspecified (principal); R06.00 Dyspnea, unspecified; R06.89 Other abnormalities of breathing; R94.2 Abnormal results of pulmonary function studies
CPT/HCPCS: 94375; 94726; 94729

== ENCOUNTER 2023-02-11 10:29 | Outpatient (CLI) | payer MEDICARE, SELFPAY ==
[2023-02-14 08:52] LABS: Anti Centromere B Antibody <1.0
[2023-02-14 11:52] LABS: Scleroderma 70 Antibody <1.0
== END 2023-02-11 10:30 | disposition home or self-care (01) ==
PROVIDERS: PCP Internal Medicine; Visit Provider Internal Medicine Pulmonary Disease
DX: J84.9 Interstitial pulmonary disease, unspecified (principal)
CPT/HCPCS: 36415; 86235

== ENCOUNTER 2023-03-20 10:57 | Outpatient (CLI) | payer MEDICARE, SELFPAY ==
[2023-03-20 11:43] LABS: Basophils Absolute Auto 0.1 K/mm3 (0.0-0.1); Basophils Percent Auto 1.1 % (0.2-1.2); Eosinophils Absolute Auto 0.1 K/mm3 (0-0.3); Eosinophils Percent Auto 1.9 % (0-4.4); Hematocrit 43.8 % (37.0-47.0); Hemoglobin 13.9 g/dL (12.0-15.0); Immature Granulocyte Absolute 0.02 K/mm3 (0.00-0.031); Immature Granulocyte Percent A 0.3 % (0-0.5); Lymphocytes Absolute Auto 1.11 K/mm3 (0.9-3.2); Mean Corpuscular HGB Conc 31.7 g/dl (32-36); Mean Corpuscular Hemoglobin 31.5 pg (26-34); Mean Corpuscular Volume 99.3 fl (80-100); Mean Platelet Volume 9.1 fl (7.4-10.4); Monocytes Absolute Auto 0.5 K/mm3 (0.1-0.6); Monocytes Percent Auto 7.3 % (2.6-8.5); Neutrophils Absolute Auto 5.5 K/mm3 (1.3-6.7); Neutrophils Percent Auto 74.4 % (45.5-73.1); Platelet Count Result 273 k/mm3 (150-375); Red Blood Count 4.41 M/mm3 (4.2-5.4); Red Cell Distribution Width 17.2 % (11.5-14.5); White Blood Count 7.4 K/mm3 (4.5-10.0)
[2023-03-20 11:55] LABS: Alanine Aminotransferase 20 U/L (6-35); Albumin Level 3.6 g/dL (3.5-5.1); Alkaline Phosphatase 99 U/L (38-126); Anion Gap 5 mmol/L (8-16); Aspartate Amino Transferase 30 U/L (14-36); Bilirubin,Total 1.1 mg/dL (0.2-1.3); Blood Urea Nitrogen 37 mg/dL (7-17); Calcium 9.3 mg/dL (8.4-10.2); Carbon Dioxide 29 mmol/L (22-30); Chloride 103 mmol/L (98-107); Estimated Glomerular Filt Rate 26; Glucose 89 mg/dL (65-110); Potassium 3.7 mmol/L (3.4-5.0); Sodium 137 mmol/L (137-145)
[2023-03-20 14:43] LABS: NT Pro B Type Natriuretic Pept 20000 pg/mL (19.9-100)
== END 2023-03-20 10:58 | disposition home or self-care (01) ==
PROVIDERS: PCP Internal Medicine; Visit Provider Internal Medicine Cardiovascular Disease
DX: R06.02 Shortness of breath (principal); R22.9 Localized swelling, mass and lump, unspecified; I27.20 Pulmonary hypertension, unspecified; I35.0 Nonrheumatic aortic (valve) stenosis
CPT/HCPCS: 36415; 80053; 83880; 85025

== ENCOUNTER 2023-04-07 07:09 | Outpatient (RCR) | payer MEDICARE, SELFPAY ==
[2023-03-25 09:00] VITALS: BMI 26.6
== END 2023-06-09 09:28 | disposition home or self-care (01) ==
LOC: ANHWOC 07:09
PROVIDERS: PCP Internal Medicine; Visit Provider Internal Medicine Cardiovascular Disease
DX: R60.0 Localized edema (principal); S80.829D Blister (nonthermal), unspecified lower leg, subsequent encounter
CPT/HCPCS: 99214; A9270; G0463

== ENCOUNTER 2023-04-22 08:59 | Outpatient (CLI) | payer MEDICARE, SELFPAY ==
[2023-04-22 09:51] LABS: Anion Gap 7 mmol/L (8-16); Blood Urea Nitrogen 35 mg/dL (7-17); Calcium 9.3 mg/dL (8.4-10.2); Carbon Dioxide 29 mmol/L (22-30); Chloride 102 mmol/L (98-107); Estimated Glomerular Filt Rate 22; Glucose 94 mg/dL (65-110); Potassium 4.2 mmol/L (3.4-5.0); Sodium 138 mmol/L (137-145)
== END 2023-04-22 09:00 | disposition home or self-care (01) ==
LOC: ANHLAB 09:05
PROVIDERS: PCP Internal Medicine; Visit Provider Internal Medicine Cardiovascular Disease
DX: I35.0 Nonrheumatic aortic (valve) stenosis (principal); I12.9 Hypertensive chronic kidney disease with stage 1 through stage 4 chronic kidney disease, or unspecified chronic kidney disease; N18.9 Chronic kidney disease, unspecified
CPT/HCPCS: 36415; 80048

== ENCOUNTER 2023-05-27 12:50 | Inpatient (IN) | payer MEDICARE, SELFPAY ==
[2023-05-27] VITALS (13 sets, daily range): BP systolic 106–138; BP diastolic 62–87; PULSE 82–94; RESP 14–26; TEMP 36.4–36.7; O2SAT 87–100; BMI 31.6
--- NOTE | ~2023-05-27 | US_ITS ---
EXAMINATION: US venous doppler [facility] DATE: 05/29/2023 15:27 INDICATION: Bilateral lower limb swelling TECHNIQUE: Zelaya scale images without and with compression and Doppler images of the bilateral lower e xtremity veins were obtained. COMPARISON: None FINDINGS: The right common femoral vein, profunda femoral vein, femoral vein, popliteal vein, peroneal trunk, p osterior tibial veins, and greater saphenous vein are patent. The left common femoral vein, profunda femoral vein, femoral vein, popliteal vein, peroneal trunk, po sterior tibial veins, and greater saphenous vein are patent. IMPRESSION: 1. Patent bilateral lower extremity veins. No evidence of deep venous thrombosis. Reviewed, dictated and finalized at location F. EQUIPMENT OPERATOR IMPRESSION: 1. Patent bilateral lower extremity veins. No evidence of deep venous thrombosi s.
--- NOTE | ~2023-05-27 | XR_ITS ---
Right Knee Technique: AP and lateral views were obtained. Clinical History: Pain Findings: No fracture or dislocation is seen. There is medial compartment narrowing with tricompartme ntal degenerative moderate spurring.. Soft tissues are unremarkable. No joint effusion is seen. Impression: Moderate joint compartment degenerative change, worst in the medial compartment. Reviewed, dictated and finalized at location . GENCY COMMUNICATIONS DISPATCHER Impression: Moderate joint compartment degenerative change, worst in the medial compartment .
--- NOTE | ~2023-05-27 | XR_ITS ---
EXAMINATION: XR chest 2V DATE: 05/27/2023 15:11 INDICATION: Dyspnea. TECHNIQUE: Frontal and lateral views of the chest were obtained. COMPARISON: Chest 2 views 06/13/2022, chest CT 12/07/2022 FINDINGS: There is a diffuse interstitial pattern in the lungs with a peripheral and lower lung predo minance. No pleural effusion or pneumothorax. There is enlargement of the cardiac silhouette. There i s an old healed left rib fracture. IMPRESSION: 1. Worsened diffuse interstitial pattern in the lungs, consistent with chronic interstitial lung dise ase without or with superimposed pulmonary edema. 2. Enlargement of the cardiac silhouette, likely a combination of cardiomegaly and pericardial effusi on. Reviewed, dictated and finalized at location E. MITH HELPER IMPRESSION: 1. Worsened diffuse interstitial pattern in the lungs, consistent with chronic interstitial lung disease without or with superimposed pulmonary edema. 2. Enlargement of the cardiac silhouette, likely a combination of cardiomegaly and pericardial effusion.
--- NOTE | 2023-05-27 14:25 | ED.GENADULT ---
HPI - General Adult General Chief complaint: Shortness of Breath/Dyspnea <Ulysses Patel PA-C - Last Filed: 05/27/23 14:39> Stated complaint: sob <Ulysses Patel PA-C - Last Filed: 05/27/23 14:39> Time Seen by Provider: 05/27/23 14:25 <Ulysses Patel PA-C - Last Filed: 05/27/23 14:39> Focused HPI: This is a 73-year-old female with PMH of CHF, CKD who presents to the ED with chief complaint of shortness of breath. Noted to be hypoxic today [facility]. She was just discharged from [facility] to the rehab center for general weakness but they thought she needed to come here for the hypoxia. Patient states that she has been coughing and had difficulty with breathing ever since leaving the hospital. Denies fevers, chills, chest pain, productive cough. GENERAL: Well-appearing, well-nourished, and in no acute distress. Presents in wheelchair. Appears chronically ill. HEAD: Normocephalic, atraumatic. CHEST: Clear to auscultation. No respiratory distress. 92% room air. HEART: Regular rate and rhythm. NEURO: Alert and oriented x3. Patient screened in triage and initial orders placed. Additional care and disposition to be based upon diagnostic testing and treatment. <Ulysses Patel PA-C - Last Filed: 05/27/23 14:39> History of Present Illness HPI narrative: 73-year-old female presents emergency department for evaluation of worsening shortness of breath. Patient was recently discharged from [facility] and had her rehab facility she was found to have worsening condition and increased hypoxia. <Eugene Holly MD - Last Filed: 05/27/23 21:50> Related Data Home medications: Home Medications Medication Instructions Recorded Confirmed estradiol 0.5 mg tablet 0.5 mg PO DAILY 06/21/19 05/27/23 cholecalciferol (vitamin D3) 25 25 mcg PO DAILY 12/20/19 05/27/23 mcg (1,000 unit) capsule chondroitin sulfate A 250 mg 250 mg PO DAILY 12/20/19 05/27/23 capsule mecobalamin (vitamin B12) 1,000 1,000 mcg PO DAILY 12/20/19 05/27/23 mcg chewable tablet furosemide 40 mg tablet 40 mg PO DAILY 01/28/23 05/27/23 glucosamine HCl 500 mg tablet 500 mg PO DAILY 02/10/23 05/27/23 medroxyprogesterone 5 mg tablet 5 mg PO DAILY 02/10/23 05/27/23 empagliflozin 10 mg tablet 10 mg PO DAILY 04/09/23 05/27/23 (Jardiance) omeprazole 20 mg capsule,delayed 20 mg PO DAILY 05/27/23 05/27/23 release <Ulysses Patel PA-C - Last Filed: 05/27/23 14:39> Allergies/adverse reactions: Allergies Allergy/AdvReac Type Severity Reaction Status Date / Time No Known Allergies Allergy Unknown Verified 05/27/23 14:27 <Ulysses Patel PA-C - Last Filed: 05/27/23 14:39> Review of Systems Review of Systems: All systems reviewed & are unremarkable except as noted in HPI and below <Eugene Holly MD - Last Filed: 05/27/23 21:50> [facility] Past Medical History Medical History: Medical History Anemia Aortic valve stenosis CKD (chronic kidney disease) GAVE (gastric antral vascular ectasia) Heart murmur Hypothyroidism, unspecified Pulmonary hypertension Right heart failure due to pulmonary hypertension <Ulysses Patel PA-C - Last Filed: 05/27/23 14:39> Family History Family History: Family History Mother Cerebrovascular accident Sibling Cerebrovascular accident Father Family history of primary malignant neoplasm of liver Daughter Hypertension <Ulysses Patel PA-C - Last Filed: 05/27/23 14:39> Social History Social History: Social History (Updated 04/09/23 @ 16:08 by Tiffanie Barnard) Social History: Caffeine-coffee Smoking status: Former smoker Smoking end date: 05/12/1968 Alcohol intake: never Substance use: never Substance use type: does not use Do You Feel Safe in your Home?: Yes Lack of Transportation: No Lack of Food: Never True Current [place]
--- NOTE | 2023-05-27 14:42 | ECG_ITS ---
Measurements Intervals [place] Rate: 85 P: 24 [place]: 140 QRS: 129 QRSD: 111 T: -20 QT: 376 QTc: 450 Interpretive Statements SINUS RHYTHM RIGHT AXIS DEVIATION INCOMPLETE RIGHT BUNDLE BRANCH BLOCK MINIMAL Q WAVES- ANT/INF LEADS ST-T WAVE ABNORMALITY IN ANT/INF LEADS- CONSIDER ISCHEMIA BASELINE ARTIFACT- I, V2, V4-V6 ABNORMAL ECG NO PREVIOUS ECG AVAILABLE FOR COMPARISON Electronically Signed On 05-27-2023 15:01:27 LEAN SENSEI by Luis Miguel Pickens D.O.
[2023-05-27 15:00] LABS: Hematocrit 46.2 % (37.0-47.0); Hemoglobin 14.1 g/dL (12.0-15.0); Mean Corpuscular HGB Conc 30.5 g/dl (32-36); Mean Corpuscular Hemoglobin 30.9 pg (26-34); Mean Corpuscular Volume 101.3 fl (80-100); Mean Platelet Volume 10.1 fl (7.4-10.4); Platelet Count Result 333 k/mm3 (150-375); Red Blood Count 4.56 M/mm3 (4.2-5.4); Red Cell Distribution Width 18.1 % (11.5-14.5); White Blood Count 7.6 K/mm3 (4.5-10.0)
[2023-05-27 15:24] LABS: INR 1.2
[2023-05-27 15:25] LABS: Partial Thromboplastin Time 33.1 SECONDS (22.3-36.8)
[2023-05-27 15:27] LABS: Lymphocytes Absolute Manual 1.06 K/mm3 (1.1-4.5); Monocytes Percent Manual 4 % (3-9); Neutrophils Percent Manual 82 % (46-73); Platelet Estimate Adequate (Adequate); Schistocytes None Seen (NORMAL); Total Cells Counted 100
[2023-05-27 16:24] LABS: Alanine Aminotransferase 19 U/L (6-35); Albumin Level 3.2 g/dL (3.5-5.1); Alkaline Phosphatase 162 U/L (38-126); Anion Gap 8 mmol/L (8-16); Aspartate Amino Transferase 37 U/L (14-36); Bilirubin,Total 1.1 mg/dL (0.2-1.3); Blood Urea Nitrogen 29 mg/dL (7-17); Calcium 8.4 mg/dL (8.4-10.2); Carbon Dioxide 23 mmol/L (22-30); Chloride 104 mmol/L (98-107); Estimated CRCL calculation 34 ml/min; Estimated Glomerular Filt Rate 37; Glucose 88 mg/dL (65-110); Magnesium 1.6 mg/dL (1.6-2.3); Potassium 3.5 mmol/L (3.4-5.0); Sodium 135 mmol/L (137-145)
[2023-05-27 16:36] LABS: Appearance Urine Clear (Clear); Bacteria Urine None Seen /hpf; Bilirubin Urine Negative (Negative); Blood Urine Negative (Negative); Color Urine Dark Yellow (Yellow); Glucose Urine UA Negative (Negative); Ketones Urine Negative (Negative); Leukocyte Esterase Ur Negative LEU/UL (Negative); Nitrate Urine Negative (Negative); Protein Urine Trace mg/dL (Negative); RBC Urine 0-2 /hpf (0-2); Specific Grav Ur 1.018 (1.001-1.035); Squamous Epithelial Cell Urine None seen /hpf (Few); Urobilinogen Urine 0.2 mg/dL (<2.0); WBC Urine 0-5 /hpf
[2023-05-27 16:40] LABS: NT Pro B Type Natriuretic Pept 11300 pg/mL (19.9-100)
[2023-05-27 16:41] LABS: Add Urine Microscopic? YES
[2023-05-27] MEDS: FUROSEMIDE INJ 40 MG/4 ML VIAL IV PUSH (18:25)
[2023-05-27 18:30] LABS: Influenza A QL RT-PCR Positive (Negative); Influenza B QL RT-PCR Negative (Negative); RSV RNA, RT-PCR Negative (Negative); SARS-CoV-2 RNA PCR Negative (Negative)
--- NOTE | 2023-05-27 19:10 | ECG_ITS ---
Measurements Intervals [place] Rate: 89 P: 42 [place]: 171 QRS: 143 QRSD: 112 T: -15 QT: 374 QTc: 457 Interpretive Statements SINUS RHYTHM RIGHT AXIS DEVIATION POSSIBLE LEFT ATRIAL ENLARGEMENT INCOMPLETE RIGHT BUNDLE BRANCH BLOCK NONSPECIFIC ST & T-WAVE ABNORMALITY- ANTEROLAT/INF LEADS BASELINE ARTIFACT- II, III, AVR, AVF, V2 BORDERLINE ECG COMPARED TO ECG 05/27/2023 14:51:09 NO SIGNIFICANT CHANGES Electronically Signed On 05-27-2023 20:48:23 OUTREACH REP by Luis Miguel Pickens D.O.
[2023-05-27 19:44] LABS: Troponin I 0.033 ng/mL (0.000-0.034)
--- NOTE | 2023-05-27 20:40 | ADMGEN ---
This patient, Ioana Tate, was admitted to IMU Room 213-01. Patient/family oriented to hospital policies and general routines including ID bracelet, bed and alarms, visiting hours, pain management, procedures, bathroom and other care routines, personal items, smoking policy, room service/diet, and visiting hours. Information on how to activate the Rapid Response Team has been discussed. Patient/Family are encouraged to report perceived risks to care and to ask questions if they do not understand what they are told or what they should do.
--- NOTE | 2023-05-27 21:02 | PM.IMHP ---
H&P: HPI History of Present Illness Date/Time: 05/27/23 21:00 Chief Complaint: Shortness of breath. Narrative: This is a very pleasant 73-year-old female with right-sided heart failure, severe pulmonary hypertension, obstructive sleep apnea, aortic stenosis, hypertension, chronic kidney disease, anemia, and hypothyroidism who presented to the emergency department via EMS for evaluation of shortness of breath. The patient provides the following history. She was reportedly discharged from [facility] today after a 10 day stay in which she was reportedly admitted for weakness after a fall. She was discharged to [facility] today and on arrival there her SpO2 was in the 70s on room air. With further questioning she endorses chronic dyspnea on exertion but that has been getting worse over the last week or so. She has chronic lower extremity edema which is not necessarily unusual for her. She goes on to say that she was referred to a pulmonary hypertension specialist at [place]. In any event, she tested positive for influenza A today and she is currently requiring 2 L nasal cannula to maintain her SpO2 in the mid to upper 90s. In addition shortness of breath she reports a sore throat, dry cough, and decreased appetite. She denies fever, chest pain, vomiting, and diarrhea. Chest x-ray showed worsened diffuse interstitial pattern in the lungs consistent with chronic interstitial lung disease with or without superimposed primary edema and enlargement of the cardiac silhouette which is likely combination of cardiomegaly and pericardial effusion. She was given a dose of IV furosemide 40 mg x 1 is being admitted in this setting for supportive care, further diuresis, and Cardiology consultation. Review of Systems Review of Systems: Twelve systems were reviewed. On exam she has a large amount of bruising on the face from a fall a week and a half ago. She has become increasingly weak recently and has had a couple of falls. She is seeing a apartment leasing specialist for blistering on her lower extremities. No history of DVT or PE. Except as documented, all other systems were reviewed and are negative. [facility] Past Medical History Medical History (Updated 05/27/23 @ 23:36 by Deanna Reid PA-C) Anemia Aortic valve stenosis Chronic kidney disease GAVE (gastric antral vascular ectasia) Hypothyroidism, unspecified Obstructive sleep apnea on CPAP Pulmonary hypertension Right heart failure due to pulmonary hypertension Surgical History Surgical History (Updated 05/27/23 @ 23:33 by Deanna Reid PA-C) History of tonsillectomy Family History Family History Mother Cerebrovascular accident Sibling Cerebrovascular accident Father Family history of primary malignant neoplasm of liver Daughter Hypertension Social History Social History (Updated 05/27/23 @ 23:34 by Deanna Reid PA-C) Social History: Surrogate medical decision maker: Margarita Ziegler, daughter. Code status: Full code. Smoking status: Former smoker Smoking end date: 05/12/1968 Alcohol intake: never Substance use: never Substance use type: does not use Do You Feel Safe in your Home?: Yes Lack of Transportation: No Lack of Food: Never True Current Housing: I Have Housing Concerned About Future Housing: No Difficulty Paying Gas/Electric Bills: No Difficulty Paying for Meds: No Currently Unemployed: No Education: Decline to Answer Difficulty w/ Childcare or Family Care: No Spiritual care concerns: No Meds Home Medications and Allergies Home Medications Medication Instructions Recorded Confirmed Type estradiol 0.5 mg tablet 0.5 mg PO DAILY 06/21/19 05/27/23 History cholecalciferol (vitamin D3) 25 25 mcg PO DAILY 12/20/19 05/27/23 History mcg (1,000 unit) capsule chondroitin sulfate A 250 mg 250 mg PO DAILY 12/20/19 05/27/23 History capsule mecobalam
[2023-05-28] VITALS (19 sets, daily range): BP systolic 107–121; BP diastolic 65–79; PULSE 68–94; RESP 15–20; TEMP 36.1–36.7; O2SAT 86–98
[2023-05-28 05:02] LABS: Anion Gap 7 mmol/L (8-16); Blood Urea Nitrogen 29 mg/dL (7-17); Calcium 8.1 mg/dL (8.4-10.2); Carbon Dioxide 26 mmol/L (22-30); Chloride 102 mmol/L (98-107); Estimated CRCL calculation 37 ml/min; Estimated Glomerular Filt Rate 37; Glucose 79 mg/dL (65-110); Magnesium 1.6 mg/dL (1.6-2.3); Potassium 3.6 mmol/L (3.4-5.0); Sodium 135 mmol/L (137-145)
[2023-05-28 06:51] LABS: Hematocrit 44.7 % (37.0-47.0); Hemoglobin 14.1 g/dL (12.0-15.0); Mean Corpuscular HGB Conc 31.5 g/dl (32-36); Mean Corpuscular Hemoglobin 31.2 pg (26-34); Mean Corpuscular Volume 98.9 fl (80-100); Mean Platelet Volume 9.6 fl (7.4-10.4); Platelet Count Result 326 k/mm3 (150-375); Red Blood Count 4.52 M/mm3 (4.2-5.4); Red Cell Distribution Width 17.8 % (11.5-14.5); White Blood Count 7.1 K/mm3 (4.5-10.0)
[2023-05-28] MEDS: FUROSEMIDE INJ 40 MG/4 ML VIAL IV PUSH ×2 (09:16→20:34)
[2023-05-28] MEDS: OSELTAMIVIR PHOSPHATE 30 MG CAPSULE PO ×2 (09:17→20:35)
--- NOTE | 2023-05-28 10:51 | PM.CNCAR ---
Assessment and Plan Assessment and plan (1) Acute diastolic CHF (congestive heart failure): Code(s): I50.31 - Acute diastolic (congestive) heart failure Status: Acute Assessment and Plan: Patient has acute on chronic right heart failure and acute diastolic heart failure with some pulmonary vascular congestion also edema of the legs, buttocks, and sacrum. The lower extremity edema has been worse in the past with weeping and blistering in the past; wears compression stockings for this during the daytime. --continue furosemide 40 mg IV push b.i.d.. However, diuresis can be a little tricky with this degree of pulmonary hypertension. If the preload is reduced too much the patient may develop hypotension and poor cardiac output. Explained to the patient and daughter that this can be a difficult balance. --Unclear if an SGLT2 inhibitor, such as Jardiance 10 mg daily, which may help in this situation , but it may help w/ left-sided diastolic CHF, so will start Jardiance 10 mg qd. --Daily BMP (2) Right heart failure due to pulmonary hypertension: Code(s): I27.29 - Other secondary pulmonary hypertension; I50.810 - Right heart failure, unspecified Status: Acute Assessment and Plan: Patient has right heart failure due to severe pulmonary hypertension, due to interstitial lung disease. Has an appointment with the Pulmonary Hypertension Clinic at [place] later this month. (3) Acute respiratory failure with hypoxia: Code(s): J96.01 - Acute respiratory failure with hypoxia Status: Acute Assessment and Plan: Patient has interstitial lung disease, worse since she contracted influenza A. (4) Influenza A: Code(s): J10.1 - Influenza due to other identified influenza virus with other respiratory manifestations Status: Acute Assessment and Plan: Patient has interstitial lung disease worse since she contracted influenza A. --Tx w/ Tamiflu and O2 per hospitalists. (5) Pulmonary hypertension: Code(s): I27.20 - Pulmonary hypertension, unspecified Status: Acute Assessment and Plan: Severe pulmonary hypertension secondary to interstitial lung disease (6) Interstitial lung disease: Code(s): J84.9 - Interstitial pulmonary disease, unspecified Status: Acute Assessment and Plan: Interstitial lung disease thought to be secondary to connective tissue disease. --keep appointment with [place] pulmonary hypertension clinic end of this month (7) Aortic valve stenosis: Qualifiers: Cardiac valve disease etiology: nonrheumatic Qualified Code(s): I35.0 - Nonrheumatic aortic (valve) stenosis Code(s): I35.0 - Nonrheumatic aortic (valve) stenosis Status: Acute Assessment and Plan: Moderate aortic stenosis followed by Dr. El (8) Tricuspid valve insufficiency, non-rheumatic: Code(s): I36.1 - Nonrheumatic tricuspid (valve) insufficiency Status: Acute Assessment and Plan: Severe tricuspid insufficiency secondary to pulmonary hypertension and right ventricular enlargement (9) Lower extremity pain: Code(s): M79.606 - Pain in leg, unspecified Status: Acute Assessment and Plan: Pain and sensitivity of the feet and ankle seem to be out of proportion to the amount of edema; wonder if she has a degree of neuropathy? History of Present Illness History of Present Illness Consult date/time: 05/28/23 10:51 Reason For Visit: Hypoxia/CHF/ Elevated Troponin/Influenza Narrative: Ioana Tate is a 73-year-old female whom I was asked to see at the request of VALENTIN Medina, for my advice and opinion regarding her CHF in consultation. She has history of CHF, moderate aortic stenosis, hypertension, dyslipidemia and CKD. She is followed by my associate, Dr. El. The patient also is followed by Pulmonary MD Dr. Sim for her interstitial lung disease and severe pulmonary hypert
--- NOTE | 2023-05-28 15:15 | PC.NURSE ---
Pt requesting something for her cough. No PRN medications ordered at this time. Call placed to Dr. Quispe regarding this request. New order for Robitussin 10ml q4h PRN for cough. RN also notified that home medications have not been addressed yet at this time. states I will look at home mediations.
--- NOTE | 2023-05-28 18:39 | PM.IMPN ---
Progress Note: A&P Assessment and Plan (1) Acute respiratory failure with hypoxia: Code(s): J96.01 - Acute respiratory failure with hypoxia Status: Acute (2) Acute exacerbation of congestive heart failure: Code(s): I50.9 - Heart failure, unspecified Status: Acute (3) Right heart failure due to pulmonary hypertension: Code(s): I27.29 - Other secondary pulmonary hypertension; I50.810 - Right heart failure, unspecified Status: Acute (4) Influenza: Code(s): J11.1 - Influenza due to unidentified influenza virus with other respiratory manifestations Status: Acute (5) Chronic kidney disease: Code(s): N18.9 - Chronic kidney disease, unspecified Status: Acute (6) Essential (primary) hypertension: Code(s): I10 - Essential (primary) hypertension Status: Acute Plan The patient presented to the emergency department via EMS from [facility] for evaluation of shortness of breath and hypoxia as detailed in HPI. Labs, imaging, EKG, and all reports were personally reviewed. It is my understanding that she was just discharged from [place] today and records have been requested for review. Her hypoxia is due to a combination of CHF exacerbation and influenza. Pulmonary embolism is a consideration though that seems less likely. She has bilateral lower extremity edema and venous Doppler ultrasounds have been ordered to rule out DVT. Chest x-ray shows findings of chronic interstitial lung disease with likely superimposed edema. She has significant pitting edema and elevated proBNP and she will be judiciously diuresed with close monitoring of volume status, renal function, electrolytes, and blood pressures. Her cardiac history is complicated and cardiology has been consulted for further recommendations. She tested positive for influenza and she has been started on Tamiflu. CPAP will be provided for the patient to use while hospitalized. Blood pressures were reviewed and they are stable. Her kidney disease appears stable on review of previous labs. Her home medications will be reviewed and resumed as appropriate. Wound nurse consulted for lower extremity wounds. Findings and treatment plan were discussed with the patient. Questions were solicited and answered to satisfaction. The patient's medical management will be taken over by the hospitalist team in a.m. Time Spent With Patient Time with patient: 25 - 35 minutes Subjective Date/time seen: 05/28/23 18:39 Interval history: Seen and examined; poor drive Review of Systems Review of Systems: Twelve systems were reviewed. On exam she has a large amount of bruising on the face from a fall a week and a half ago. She has become increasingly weak recently and has had a couple of falls. She is seeing a archives specialist for blistering on her lower extremities. No history of DVT or PE. Except as documented, all other systems were reviewed and are negative. Exam Narrative: General: Moderately ill-appearing female supine in bed. Weight: 91.8 kg. BMI: 31.7. HEENT: Healing bruises over the face. Wearing corrective lenses. PERRL, EOMI. Sclera anicteric. Tacky mucous membranes. Neck: Supple. Mild jugular venous distension. Respiratory: Respirations are nonlabored and she is speaking in full sentences. Lung sounds are diminished at the bases and coarse with scattered rales. Cardiovascular: Regular rate and rhythm with S1-S2. Systolic murmur heard at the upper sternal border. Gastrointestinal: Abdomen is soft, obese, nontender, and nondistended with positive bowel sounds. Skin: Warm and dry. Blisters and ulcerations of the lower legs. Compressive dressings in place. Extremities: No cyanosis or clubbing. She has pitting edema extending up into the flanks. Neurological: Alert. Cranial nerves 2-12 are grossly intact. No gross focal deficits to casual conversation. Psychiatric: Pleasant and cooperative with normal mood and affect. Judgment and in
[2023-05-28] MEDS: ACETAMINOPHEN 325 MG TABLET 650 MG PO (20:33)
[2023-05-28] MEDS: IPRATROPIUM 0.5 MG/ALBUTEROL SULFATE 2.5 MG AMPUL.NEB 3 ML INHALATION (20:46)
[2023-05-29] VITALS (21 sets, daily range): BP systolic 99–115; BP diastolic 56–72; PULSE 80–100; RESP 16–24; TEMP 36.1–36.8; O2SAT 89–100
[2023-05-29] MEDS: IPRATROPIUM 0.5 MG/ALBUTEROL SULFATE 2.5 MG AMPUL.NEB 3 ML INHALATION ×3 (02:29→21:05)
[2023-05-29 04:58] LABS: Basophils Absolute Auto 0.1 K/mm3 (0.0-0.1); Eosinophils Absolute Auto 0.2 K/mm3 (0-0.3); Eosinophils Percent Auto 3.4 % (0-4.4); Hematocrit 42.6 % (37.0-47.0); Hemoglobin 13.2 g/dL (12.0-15.0); Immature Granulocyte Absolute 0.03 K/mm3 (0.00-0.031); Immature Granulocyte Percent A 0.5 % (0-0.5); Lymphocytes Absolute Auto 1.17 K/mm3 (0.9-3.2); Lymphocytes Percent Auto 20.1 % (18.3-44.2); Mean Corpuscular Hemoglobin 30.8 pg (26-34); Mean Corpuscular Volume 99.5 fl (80-100); Mean Platelet Volume 9.5 fl (7.4-10.4); Monocytes Absolute Auto 0.5 K/mm3 (0.1-0.6); Monocytes Percent Auto 7.7 % (2.6-8.5); Neutrophils Absolute Auto 3.9 K/mm3 (1.3-6.7); Neutrophils Percent Auto 67.3 % (45.5-73.1); Platelet Count Result 344 k/mm3 (150-375); Red Blood Count 4.28 M/mm3 (4.2-5.4); Red Cell Distribution Width 18.1 % (11.5-14.5); White Blood Count 5.8 K/mm3 (4.5-10.0)
[2023-05-29 05:11] LABS: Alanine Aminotransferase 14 U/L (6-35); Albumin Level 2.7 g/dL (3.5-5.1); Alkaline Phosphatase 117 U/L (38-126); Anion Gap 7 mmol/L (8-16); Aspartate Amino Transferase 24 U/L (14-36); Bilirubin,Total 0.9 mg/dL (0.2-1.3); Blood Urea Nitrogen 28 mg/dL (7-17); Calcium 7.9 mg/dL (8.4-10.2); Carbon Dioxide 25 mmol/L (22-30); Chloride 104 mmol/L (98-107); Estimated CRCL calculation 34 ml/min; Estimated Glomerular Filt Rate 34; Glucose 86 mg/dL (65-110); Potassium 3.3 mmol/L (3.4-5.0); Sodium 136 mmol/L (137-145)
[2023-05-29] MEDS: LEVOTHYROXINE SODIUM 75 MCG TABLET PO (06:11)
[2023-05-29] MEDS: ACETAMINOPHEN 325 MG TABLET 650 MG PO (08:42)
[2023-05-29] MEDS: FUROSEMIDE INJ 40 MG/4 ML VIAL IV PUSH ×2 (08:43→20:46)
[2023-05-29] MEDS: PANTOPRAZOLE 40 MG TABLET PO (08:44)
[2023-05-29] MEDS: OSELTAMIVIR PHOSPHATE 30 MG CAPSULE PO ×2 (08:45→20:44)
[2023-05-29] MEDS: DULoxetine HCL 30 MG CAPSULE.DR PO (08:45)
[2023-05-29] MEDS: CHOLECALCIFEROL 1,000 UNITS TABLET 1000 UNITS PO (08:45)
[2023-05-29] MEDS: EMPAGLIFLOZIN 10 MG TABLET PO (08:45)
[2023-05-29] MEDS: CYANOCOBALAMIN 1,000 MCG TABLET 1000 MCG PO (08:46)
[2023-05-29] MEDS: LIDOCAINE 5% PATCH 2 PATCH TRANSDERM (08:50)
--- NOTE | 2023-05-29 15:57 | PM.IMPN ---
Progress Note: A&P Assessment and Plan (1) Acute respiratory failure with hypoxia: Code(s): J96.01 - Acute respiratory failure with hypoxia Status: Acute (2) Acute exacerbation of congestive heart failure: Code(s): I50.9 - Heart failure, unspecified Status: Acute (3) Right heart failure due to pulmonary hypertension: Code(s): I27.29 - Other secondary pulmonary hypertension; I50.810 - Right heart failure, unspecified Status: Acute (4) Influenza: Code(s): J11.1 - Influenza due to unidentified influenza virus with other respiratory manifestations Status: Acute (5) Chronic kidney disease: Code(s): N18.9 - Chronic kidney disease, unspecified Status: Acute (6) Essential (primary) hypertension: Code(s): I10 - Essential (primary) hypertension Status: Acute Plan Assessment and Plan (1) Acute respiratory failure with hypoxia: ?Code(s): J96.01 - Acute respiratory failure with hypoxia ?Status:?Acute (2) Acute exacerbation of congestive heart failure: ?Code(s): I50.9 - Heart failure, unspecified ?Status:?Acute (3) Right heart failure due to pulmonary hypertension: ?Code(s): I27.29 - Other secondary pulmonary hypertension; I50.810 - Right heart failure, unspecified ?Status:?Acute (4) Influenza: ?Code(s): J11.1 - Influenza due to unidentified influenza virus with other respiratory manifestations ?Status:?Acute (5) Chronic kidney disease 3 ?Code(s): N18.9 - Chronic kidney disease, unspecified ?Status:?Acute (6) Essential (primary) hypertension: ?Code(s): I10 - Essential (primary) hypertension ?Status:?Acute Time Spent With Patient Time with patient: 25 - 35 minutes Subjective Date/time seen: 05/29/23 15:57 Interval history: Seen and examined; fatigued Review of Systems Review of Systems: Twelve systems were reviewed. On exam she has a large amount of bruising on the face from a fall a week and a half ago. She has become increasingly weak recently and has had a couple of falls. She is seeing a social media specialist for blistering on her lower extremities. No history of DVT or PE. Except as documented, all other systems were reviewed and are negative. Exam Narrative: General: Moderately ill-appearing female supine in bed. Weight: 91.8 kg. BMI: 31.7. HEENT: Healing bruises over the face. Wearing corrective lenses. PERRL, EOMI. Sclera anicteric. Tacky mucous membranes. Neck: Supple. Mild jugular venous distension. Respiratory: Respirations are nonlabored and she is speaking in full sentences. Lung sounds are diminished at the bases and coarse with scattered rales. Cardiovascular: Regular rate and rhythm with S1-S2. Systolic murmur heard at the upper sternal border. Gastrointestinal: Abdomen is soft, obese, nontender, and nondistended with positive bowel sounds. Skin: Warm and dry. Blisters and ulcerations of the lower legs. Compressive dressings in place. Extremities: No cyanosis or clubbing. She has pitting edema extending up into the flanks. Neurological: Alert. Cranial nerves 2-12 are grossly intact. No gross focal deficits to casual conversation. Psychiatric: Pleasant and cooperative with normal mood and affect. Judgment and insight intact. Objective Data Vital Signs Vital Signs: Vital Signs - 24 hr 05/28/23 16:00 05/28/23 16:00 05/28/23 16:41 Temperature Pulse Rate 80 Respiratory Rate Blood Pressure Pulse Oximetry 94 86 L Pulse Oximetry [With Activity During Therapy Session] Oxygen Delivery Nasal Cannula Nasal Cannula Oxygen Flow Rate 1 1 05/28/23 18:00 05/28/23 20:00 05/28/23 20:46 Temperature 97 F L Pulse Rate 94 83 85 Respiratory Rate 20 18 Blood Pressure 107/65 Pulse Oximetry 96 Pulse Oximetry [With Activity During Therapy Session] Oxygen Delivery Oxygen Flow Rate 05/28/23 20:58 05/28/23 20:46 05/28/23 20:00
--- NOTE | 2023-05-29 17:49 | PM.PNCARD ---
Progress Note: A&P Assessment and Plan (1) Acute diastolic CHF (congestive heart failure): Code(s): I50.31 - Acute diastolic (congestive) heart failure Status: Acute Assessment and Plan: Patient has acute on chronic right heart failure and acute diastolic heart failure with some pulmonary vascular congestion also edema of the legs, buttocks, and sacrum. The lower extremity edema has been worse in the past with weeping and blistering in the past butnone recently. Wears compression stockings for this during the daytime. --continue furosemide 40 mg IV push b.i.d.. However, diuresis can be a little tricky with this degree of pulmonary hypertension. If the preload is reduced too much the patient may develope hypotension and poor cardiac output. BP has declined some. Unclear how much pt is diuresing. --Unclear if an SGLT2 inhibitor, such as Jardiance 10 mg daily, would help w/ right -sided CHF , but it may help w/ left-sided diastolic CHF. STarted Jardiance 10 mg qd. --Daily BMP (2) Right heart failure due to pulmonary hypertension: Code(s): I27.29 - Other secondary pulmonary hypertension; I50.810 - Right heart failure, unspecified Status: Acute Assessment and Plan: Patient has right heart failure due to severe pulmonary hypertension, due to interstitial lung disease. Has an appointment with the Pulmonary Hypertension Clinic at [place] later this month. (3) Acute respiratory failure with hypoxia: Code(s): J96.01 - Acute respiratory failure with hypoxia Status: Acute Assessment and Plan: Patient has interstitial lung disease, worse since she contracted influenza A. (4) Influenza A: Code(s): J10.1 - Influenza due to other identified influenza virus with other respiratory manifestations Status: Acute Assessment and Plan: Patient has interstitial lung disease worse since she contracted influenza A. --Tx w/ Tamiflu and O2 per hospitalists. (5) Pulmonary hypertension: Code(s): I27.20 - Pulmonary hypertension, unspecified Status: Acute Assessment and Plan: Severe pulmonary hypertension secondary to interstitial lung disease (6) Interstitial lung disease: Code(s): J84.9 - Interstitial pulmonary disease, unspecified Status: Acute Assessment and Plan: Interstitial lung disease thought to be secondary to connective tissue disease. --keep appointment with [place] pulmonary hypertension clinic end of this month (7) Aortic valve stenosis: Qualifiers: Cardiac valve disease etiology: nonrheumatic Qualified Code(s): I35.0 - Nonrheumatic aortic (valve) stenosis Code(s): I35.0 - Nonrheumatic aortic (valve) stenosis Status: Acute Assessment and Plan: Moderate aortic stenosis followed by Dr. El (8) Tricuspid valve insufficiency, non-rheumatic: Code(s): I36.1 - Nonrheumatic tricuspid (valve) insufficiency Status: Acute Assessment and Plan: Severe tricuspid insufficiency secondary to pulmonary hypertension and right ventricular enlargement (9) Lower extremity pain: Code(s): M79.606 - Pain in leg, unspecified Status: Acute Assessment and Plan: Pain and sensitivity of the feet and ankle seem to be out of proportion to the amount of edema; wonder if she has a degree of neuropathy? Subjective Date/time seen: 05/29/23 17:49 Interval history: Admitted with respiratory failure secondary to influenza A, and interstitial lung disease (planning on seeing pulmonary hypertension specialist at [place] later this month). Cardiology follow-up for acute on chronic heart failure, right and left-sided. History of severe pulmonary hypertension secondary to interstitial lung disease. Started on furosemide 40 mg IV push b.i.d. and Jardiance. Also has history of moderate aortic stenosis followed by Dr. Duff and severe tricuspid regurgitation. Date of service 05/29/2023:
--- NOTE | 2023-05-29 17:50 | ADMGEN ---
This patient, Ioana Tate, was admitted to Medical Room 248-01. Patient/family oriented to hospital policies and general routines including ID bracelet, bed and alarms, visiting hours, pain management, procedures, bathroom and other care routines, personal items, smoking policy, room service/diet, and visiting hours. Information on how to activate the Rapid Response Team has been discussed. Patient/Family are encouraged to report perceived risks to care and to ask questions if they do not understand what they are told or what they should do.
--- NOTE | 2023-05-29 17:59 | PC.NURSE ---
This patient, Ioana Tate, was transferred to [facility] via bed on 05/29/23 at 1745 without issue. Personal belongings sent with patient. Report given to Jose De Jesus Linares. Appropriate documentation sent with patient.
--- NOTE | 2023-05-29 20:41 | PC.NURSE ---
Notified RT regarding patient request for breathing treatment and CPAP placement.
[2023-05-30] VITALS (26 sets, daily range): BP systolic 88–115; BP diastolic 56–78; PULSE 80–148; RESP 14–24; TEMP 36–36.6; O2SAT 92–99
--- NOTE | 2023-05-30 | ECHO_ITS ---
Patient Info Name: Ioana Tate Age: 73 years : 1950 Gender: Female Ht: 67 in Wt: 202 lbs BSA: 2.11 m2 HR: 91 bpm BP: 104 / 65 mmHg Heart Rhythm: Sinus Rhythm Technical Quality: Good Exam Date: 05/30/2023 2:52 PM Exam Location: Echo Lab Patient Status: Inpatient Admit Date: 05/29/2023 Staff Ordering Physician: Angel Quispe MD Food Order Delivery Runner: Liliam Boles RDCS Attending Provider: Tiara Esparza DO Referring Physician: Brittaney FRASER; Exam Type: CA echo doppler color flow Study Info Indications R06.02 - Shortness of breath Complete two-dimensional, color flow and Doppler transthoracic echocardiogram is performed. Summary 1. Complete two-dimensional, color flow and Doppler transthoracic echocardiogram is performed. 2. Left ventricular hypertrophy with normal LV size and vigorous systolic function with grade 1 diastolic noncompliance. 3. Abnormal septal shape( D sign) and motion consistent with right ventricular pressure overload. 4. Severe right-sided chamber dilation with severe right ventricular systolic dysfunction. 5. Tricuspid regurgitation velocities consistent with severe pulmonary hypertension. 6. Moderate to severe aortic valve stenosis. 7. Small circumferential pericardial effusion. Left Ventricle Left ventricular chamber dimension is normal. Left ventricular systolic function is hyperdynamic, estimated at >70%. There is mild concentric increased left ventricular wall thickness. The left ventricular diastolic function is grade I diastolic dysfunction. Right Ventricle Right ventricular chamber dimension is severely enlarged. Right ventricular systolic function is reduced. Left Atria Left atrial chamber dimension is mildly enlarged. Right Atria Right atrial chamber dimension is severely enlarged. Aortic Valve The aortic valve is trileaflet. There is severe aortic valve sclerosis. There is moderate to severe aortic valve stenosis with a peak velocity of 223 cm/s, mean gradient of 10 mmHg, and aortic valve area of 1.0 cm2. There is trace aortic valve regurgitation. Pulmonic Valve The pulmonic valve is normal. Mitral Valve The mitral valve has normal leaflets. The mitral valve annulus is moderately calcified. Tricuspid Valve The tricuspid valve leaflets are normal. There is mild to moderate tricuspid valve regurgitation. Severe pulmonary hypertension, estimated pulmonary arterial systolic pressure is 92 mmHg. Pericardium/Pleural There is small circumferential pericardial effusion. Aorta The aortic root size at the sinus of Valsalva is normal. Left Ventricular Outflow Tract Name Value Normal LVOT 2D LVOT Diameter 2.0 cm LVOT Doppler LVOT Peak Gradient 2 mmHg LVOT Mean Gradient 1 mmHg LVOT VTI 13 cm LVOT VTI/AV VTI Ratio 0.3 LVOT Stroke Volume 38 ml LVOT CO 3.3 l/min LVOT CI 1.6 l/min/m2 Pulmonic Valve Name Value Normal -------
[2023-05-30] MEDS: IPRATROPIUM 0.5 MG/ALBUTEROL SULFATE 2.5 MG AMPUL.NEB 3 ML INHALATION ×3 (02:47→14:30)
--- NOTE | 2023-05-30 04:21 | PC.NURSE ---
PER PATIENT REQUEST CPAP REMOVED. PLACED BACK ON 1L NC.
[2023-05-30 05:38] LABS: Basophils Absolute Auto 0.1 K/mm3 (0.0-0.1); Basophils Percent Auto 0.9 % (0.2-1.2); Eosinophils Absolute Auto 0.2 K/mm3 (0-0.3); Eosinophils Percent Auto 3.5 % (0-4.4); Hemoglobin 13.3 g/dL (12.0-15.0); Immature Granulocyte Absolute 0.06 K/mm3 (0.00-0.031); Immature Granulocyte Percent A 0.9 % (0-0.5); Lymphocytes Absolute Auto 1.04 K/mm3 (0.9-3.2); Lymphocytes Percent Auto 16.3 % (18.3-44.2); Mean Corpuscular HGB Conc 30.2 g/dl (32-36); Mean Corpuscular Hemoglobin 30.9 pg (26-34); Mean Corpuscular Volume 102.1 fl (80-100); Mean Platelet Volume 9.7 fl (7.4-10.4); Monocytes Absolute Auto 0.6 K/mm3 (0.1-0.6); Monocytes Percent Auto 8.6 % (2.6-8.5); Neutrophils Absolute Auto 4.4 K/mm3 (1.3-6.7); Neutrophils Percent Auto 69.8 % (45.5-73.1); Platelet Count Result 349 k/mm3 (150-375); Red Blood Count 4.31 M/mm3 (4.2-5.4); White Blood Count 6.4 K/mm3 (4.5-10.0)
[2023-05-30 05:49] LABS: Alanine Aminotransferase 13 U/L (6-35); Alkaline Phosphatase 126 U/L (38-126); Anion Gap 10 mmol/L (8-16); Aspartate Amino Transferase 24 U/L (14-36); Bilirubin,Total 0.9 mg/dL (0.2-1.3); Blood Urea Nitrogen 26 mg/dL (7-17); Calcium 8.3 mg/dL (8.4-10.2); Carbon Dioxide 28 mmol/L (22-30); Chloride 100 mmol/L (98-107); Estimated CRCL calculation 32 ml/min; Estimated Glomerular Filt Rate 32; Glucose 90 mg/dL (65-110); Potassium 3.4 mmol/L (3.4-5.0); Sodium 138 mmol/L (137-145)
[2023-05-30] MEDS: LEVOTHYROXINE SODIUM 75 MCG TABLET PO (05:54)
--- NOTE | 2023-05-30 09:05 | PM.PNCARD ---
Progress Note: A&P Assessment and Plan (1) Acute diastolic CHF (congestive heart failure): Code(s): I50.31 - Acute diastolic (congestive) heart failure Status: Acute Assessment and Plan: Patient has acute on chronic right heart failure and acute diastolic heart failure with some pulmonary vascular congestion also edema of the legs, buttocks, and sacrum. The lower extremity edema has been worse in the past with weeping and blistering in the past butnone recently. Wears compression stockings for this during the daytime. --continue furosemide 40 mg IV push b.i.d.. However, diuresis can be a little tricky with this degree of pulmonary hypertension. If the preload is reduced too much the patient may develop hypotension and poor cardiac output. --Unclear if an SGLT2 inhibitor, such as Jardiance 10 mg daily, would help w/ right -sided CHF , but it may help w/ left-sided diastolic CHF. Started Jardiance 10 mg qd. --Daily BMP, stable today (2) Right heart failure due to pulmonary hypertension: Code(s): I27.29 - Other secondary pulmonary hypertension; I50.810 - Right heart failure, unspecified Status: Acute Assessment and Plan: Patient has right heart failure due to severe pulmonary hypertension, due to interstitial lung disease. Has an appointment with the [facility]pert[facility] at [place] later this month. (3) Acute respiratory failure with hypoxia: Code(s): J96.01 - Acute respiratory failure with hypoxia Status: Acute Assessment and Plan: Patient has interstitial lung disease, worse since she contracted influenza A. (4) Influenza A: Code(s): J10.1 - Influenza due to other identified influenza virus with other respiratory manifestations Status: Acute Assessment and Plan: Patient has interstitial lung disease worse since she contracted influenza A. --Tx w/ Tamiflu and O2 per hospitalists. (5) Pulmonary hypertension: Code(s): I27.20 - Pulmonary hypertension, unspecified Status: Acute Assessment and Plan: Severe pulmonary hypertension secondary to interstitial lung disease (6) Interstitial lung disease: Code(s): J84.9 - Interstitial pulmonary disease, unspecified Status: Acute Assessment and Plan: Interstitial lung disease thought to be secondary to connective tissue disease. --keep appointment with [place] pulmonary hypertension clinic end of this month (7) Aortic valve stenosis: Qualifiers: Cardiac valve disease etiology: nonrheumatic Qualified Code(s): I35.0 - Nonrheumatic aortic (valve) stenosis Code(s): I35.0 - Nonrheumatic aortic (valve) stenosis Status: Acute Assessment and Plan: Moderate aortic stenosis followed by Dr. El (8) Tricuspid valve insufficiency, non-rheumatic: Code(s): I36.1 - Nonrheumatic tricuspid (valve) insufficiency Status: Acute Assessment and Plan: Severe tricuspid insufficiency secondary to pulmonary hypertension and right ventricular enlargement (9) Lower extremity pain: Code(s): M79.606 - Pain in leg, unspecified Status: Acute Assessment and Plan: Pain and sensitivity of the feet and ankle seem to be out of proportion to the amount of edema; wonder if she has a degree of neuropathy? Subjective Date/time seen: 05/30/23 09:05 Interval history: Admitted with respiratory failure secondary to influenza A, and interstitial lung disease (planning on seeing pulmonary hypertension specialist at [place] later this month). Cardiology follow-up for acute on chronic heart failure, right and left-sided. History of severe pulmonary hypertension secondary to interstitial lung disease. Started on furosemide 40 mg IV push b.i.d. and Jardiance. Also has history of moderate aortic stenosis followed by Dr. Duff and severe tricuspid regurgitation. Date of service 05/29/2023: Activity, ?this is no way to live. ? Systo
[2023-05-30] MEDS: PANTOPRAZOLE 40 MG TABLET PO (10:36)
[2023-05-30] MEDS: CHOLECALCIFEROL 1,000 UNITS TABLET 1000 UNITS PO (10:36)
[2023-05-30] MEDS: EMPAGLIFLOZIN 10 MG TABLET PO (10:36)
[2023-05-30] MEDS: CYANOCOBALAMIN 1,000 MCG TABLET 1000 MCG PO (10:37)
[2023-05-30] MEDS: OSELTAMIVIR PHOSPHATE 30 MG CAPSULE PO ×2 (10:37→20:58)
[2023-05-30] MEDS: LIDOCAINE 5% PATCH 2 PATCH TRANSDERM (10:43)
[2023-05-30] MEDS: FUROSEMIDE INJ 40 MG/4 ML VIAL IV PUSH (10:45)
--- NOTE | 2023-05-30 11:27 | PM.IMPN ---
Progress Note: A&P Assessment and Plan (1) Acute respiratory failure with hypoxia: Code(s): J96.01 - Acute respiratory failure with hypoxia Status: Acute Assessment and Plan: Acute, improving Lasix, Oseltamivir, (2) Acute exacerbation of congestive heart failure: Code(s): I50.9 - Heart failure, unspecified Status: Acute Assessment and Plan: supplemental oxygen; diuresis with furosemide I/O (3) Right heart failure due to pulmonary hypertension: Code(s): I27.29 - Other secondary pulmonary hypertension; I50.810 - Right heart failure, unspecified Status: Acute Assessment and Plan: Chronic, stable Supplemental oxygen ECHO (4) Influenza: Code(s): J11.1 - Influenza due to unidentified influenza virus with other respiratory manifestations Status: Acute (5) Chronic kidney disease: Code(s): N18.9 - Chronic kidney disease, unspecified Status: Acute Assessment and Plan: Chronic, Stable Avoid nephrotoxins Will reduced dose of Lasix due to worsening GFR Plan Assessment and Plan (1) Acute respiratory failure with hypoxia: ?Code(s): J96.01 - Acute respiratory failure with hypoxia ?Status:?Acute (2) Acute exacerbation of congestive heart failure: ?Code(s): I50.9 - Heart failure, unspecified ?Status:?Acute (3) Right heart failure due to pulmonary hypertension: ?Code(s): I27.29 - Other secondary pulmonary hypertension; I50.810 - Right heart failure, unspecified ?Status:?Acute (4) Influenza A ?Code(s): J11.1 - Influenza due to unidentified influenza virus with other respiratory manifestations ?Status:?Acute On Oseltamivir (5) Chronic kidney disease 3 ?Code(s): N18.9 - Chronic kidney disease, unspecified ?Status:?Acute Time Spent With Patient Time with patient: 25 - 35 minutes Subjective Date/time seen: 05/30/23 11:27 Interval history: Admitted with respiratory failure secondary to influenza A, and interstitial lung disease (planning on seeing pulmonary hypertension specialist at [place] later this month). Cardiology follow-up for acute on chronic heart failure, right and left-sided. History of severe pulmonary hypertension secondary to interstitial lung disease. Started on furosemide 40 mg IV push b.i.d. and Jardiance. Also has history of moderate aortic stenosis followed by Dr. Duff and severe tricuspid regurgitation. Date of service 05/29/2023: Activity, ?this is no way to live. ? Systolic BP 99-121 mmHg. Not much diuresis by I's and O's, but pt thinks she is urinating more than usual. Declined CPAP last night. 05/30/23: Will continue diuresis; supplemental oxygen with wean as tolerated; encourage to sit UIC, ambulate; will pursue PT/OT Review of Systems Review of Systems: Twelve systems were reviewed. On exam she has a large amount of bruising on the face from a fall a week and a half ago. She has become increasingly weak recently and has had a couple of falls. She is seeing a technology specialist for blistering on her lower extremities. No history of DVT or PE. Except as documented, all other systems were reviewed and are negative. Constitutional: Constitutional: Reports fatigue Eyes: Eyes: Reports no additional eye complaints Respiratory: Respiratory: Reports cough and Reports dyspnea Gastrointestinal: Gastrointestinal: Reports no additional gastrointestinal complaints Musculoskeletal: Musculoskeletal: Reports no additional musculoskeletal complaints Integumentary/Breasts: Skin/Breast: Reports system reviewed and no additional complaints, except as docu Neurologic: Reports system reviewed and no additional complaints, except as documented Psychiatric: Psychiatric: Reports no additional psychiatric complaints Exam Narrative: General: Moderately ill-appearing female supine in bed. Weight: 91.8 kg. BMI: 31.7. HEENT: Healing bruises over the face. Wearin
--- NOTE | 2023-05-30 20:01 | ECG_ITS ---
Measurements Intervals [place] Rate: 140 P: [place]: 0 QRS: 139 QRSD: 116 T: -19 QT: 290 QTc: 443 Interpretive Statements ATRIAL FIBRILLATION WITH RAPID VENTRICULAR RESPONSE RIGHT AXIS DEVIATION CANNOT RULE OUT SEPTAL INFARCT, AGE INDETERMINATE MINIMAL Q WAVES- INFERIOR LEADS BORDERLINE ST-T WAVE ABNORMALITY- ANTEROLAT/INF LEADS ABNORMAL ECG COMPARED TO ECG 05/27/2023 20:31:11 ATRIAL FIBRILLATION NOW PRESENT Electronically Signed On 05-31-2023 8:08:52 DIRECTOR DIGITAL CATALOGUE by Luis Miguel Pickens D.O.
--- NOTE | 2023-05-30 20:49 | PC.NURSE ---
Call placed to Shivani (daughter) and informed of pt Hr and her need to go to IMU for medication. Daughter was understanding plan of care and stated to call her at any time.
[2023-05-30] MEDS: SODIUM CHLORIDE 0.9% IV 250 ML IV CONT (20:58)
--- NOTE | 2023-05-30 22:25 | PC.NURSE ---
Pt transferred to IMU, room 214 at approximately 2140. Report given to KALI Zarate. Family made aware of pt transfer.
[2023-05-30] MEDS: SODIUM CHLORIDE 0.9% IV 1,000 ML 999 ML IV CONT (22:35)
[2023-05-30] MEDS: DIGOXIN INJ 250 MCG/ML 2 ML AMP (*BKC) 500 MCG IV PUSH (22:39)
--- NOTE | 2023-05-30 22:57 | PC.NURSE ---
This patient, Ioana Tate, was received from room 248-01 to room 214 on 05/30/23 at 2143. Patient/family oriented to unit policies and routines
[2023-05-31] VITALS (30 sets, daily range): BP systolic 100–121; BP diastolic 54–71; PULSE 72–133; RESP 16–24; TEMP 36.2–36.6; O2SAT 91–100
[2023-05-31] MEDS: AMIODARONE 150 MG/D5W 100 ML 150 MG/100 ML BAG 600 MG IV CONT (00:12)
--- NOTE | 2023-05-31 00:26 | PCRCNOTE ---
RT unable to give 2000 updraft treatment due to high heart rate (140's) Updraft to resume at 0200 and may need to be switched to levalbuterol if heart rate is still increased.
[2023-05-31] MEDS: AMIODARONE 360 MG/D5W 200 ML 360 MG/200 ML BAG 33.33 MG IV CONT (00:31)
--- NOTE | 2023-05-31 01:01 | ECG_ITS ---
Measurements Intervals [place] Rate: 94 P: 145 [place]: 160 QRS: 53 QRSD: 114 T: 201 QT: 354 QTc: 443 Interpretive Statements SINUS OR ECTOPIC ATRIAL RHYTHM POSSIBLE LEFT ATRIAL ENLARGEMENT CANNOT RULE OUT SEPTAL INFARCT, AGE INDETERMINATE BORDERLINE ST-T WAVE ABNORMALITY- DIFFUSE LEADS BASELINE ARTIFACT- I, III, AVR, AVL, AVF, V6 ABNORMAL ECG COMPARED TO ECG 05/30/2023 20:13:58 SINUS OR ECTOPIC ATRIAL RHYTHM NOW PRESENT Electronically Signed On 05-31-2023 8:18:28 BARREL AND RECEIVER ALIGNER by Luis Miguel Pickens D.O.
[2023-05-31] MEDS: IPRATROPIUM 0.5 MG/ALBUTEROL SULFATE 2.5 MG AMPUL.NEB 3 ML INHALATION ×4 (02:30→20:33)
[2023-05-31] MEDS: SODIUM CHLORIDE 0.9% IV 1,000 ML 125 ML IV CONT (05:13)
[2023-05-31 05:20] LABS: Basophils Absolute Auto 0.1 K/mm3 (0.0-0.1); Basophils Percent Auto 1.2 % (0.2-1.2); Eosinophils Absolute Auto 0.2 K/mm3 (0-0.3); Eosinophils Percent Auto 3.2 % (0-4.4); Hematocrit 44.2 % (37.0-47.0); Hemoglobin 13.3 g/dL (12.0-15.0); Immature Granulocyte Absolute 0.04 K/mm3 (0.00-0.031); Immature Granulocyte Percent A 0.5 % (0-0.5); Lymphocytes Absolute Auto 0.95 K/mm3 (0.9-3.2); Mean Corpuscular HGB Conc 30.1 g/dl (32-36); Mean Corpuscular Hemoglobin 30.8 pg (26-34); Mean Corpuscular Volume 102.3 fl (80-100); Mean Platelet Volume 9.2 fl (7.4-10.4); Monocytes Absolute Auto 0.6 K/mm3 (0.1-0.6); Monocytes Percent Auto 7.5 % (2.6-8.5); Neutrophils Absolute Auto 5.4 K/mm3 (1.3-6.7); Neutrophils Percent Auto 74.6 % (45.5-73.1); Platelet Count Result 329 k/mm3 (150-375); Red Blood Count 4.32 M/mm3 (4.2-5.4); Red Cell Distribution Width 17.8 % (11.5-14.5); White Blood Count 7.3 K/mm3 (4.5-10.0)
[2023-05-31 05:40] LABS: Alanine Aminotransferase 12 U/L (6-35); Albumin Level 2.9 g/dL (3.5-5.1); Alkaline Phosphatase 135 U/L (38-126); Anion Gap 8 mmol/L (8-16); Aspartate Amino Transferase 25 U/L (14-36); Bilirubin,Total 0.8 mg/dL (0.2-1.3); Blood Urea Nitrogen 25 mg/dL (7-17); Calcium 7.9 mg/dL (8.4-10.2); Carbon Dioxide 25 mmol/L (22-30); Chloride 104 mmol/L (98-107); Estimated CRCL calculation 35 ml/min; Estimated Glomerular Filt Rate 34; Glucose 87 mg/dL (65-110); Potassium 4.1 mmol/L (3.4-5.0); Sodium 137 mmol/L (137-145)
[2023-05-31] MEDS: LEVOTHYROXINE SODIUM 75 MCG TABLET PO (06:00)
[2023-05-31] MEDS: AMIODARONE 360 MG/D5W 200 ML 360 MG/200 ML BAG 16.67 MG IV CONT (06:51)
[2023-05-31] MEDS: LIDOCAINE 5% PATCH 2 PATCH TRANSDERM (10:29)
[2023-05-31] MEDS: EMPAGLIFLOZIN 10 MG TABLET PO (10:36)
[2023-05-31] MEDS: CHOLECALCIFEROL 1,000 UNITS TABLET 1000 UNITS PO (10:36)
[2023-05-31] MEDS: CYANOCOBALAMIN 1,000 MCG TABLET 1000 MCG PO (10:36)
[2023-05-31] MEDS: FUROSEMIDE INJ 40 MG/4 ML VIAL IV PUSH (10:36)
[2023-05-31] MEDS: PANTOPRAZOLE 40 MG TABLET PO (10:36)
[2023-05-31] MEDS: OSELTAMIVIR PHOSPHATE 30 MG CAPSULE PO ×2 (10:36→21:08)
--- NOTE | 2023-05-31 10:40 | PM.IMPN ---
Progress Note: A&P Assessment and Plan (1) Acute respiratory failure with hypoxia: Code(s): J96.01 - Acute respiratory failure with hypoxia Status: Acute Assessment and Plan: Resolved. Off oxygen. Oseltamivir day 08/14 (2) Acute exacerbation of congestive heart failure: Code(s): I50.9 - Heart failure, unspecified Status: Acute Assessment and Plan: Over-diuresis with soft blood pressures earlier. Received IV saline. Now discontinued. Switch to p.o. Lasix 05/31 (3) Right heart failure due to pulmonary hypertension: Code(s): I27.29 - Other secondary pulmonary hypertension; I50.810 - Right heart failure, unspecified Status: Acute Assessment and Plan: Chronic, stable Supplemental oxygen as needed ECHO (4) Influenza: Code(s): J11.1 - Influenza due to unidentified influenza virus with other respiratory manifestations Status: Acute Assessment and Plan: Complete 5 days of oseltamivir started on 05/28 (5) Chronic kidney disease: Qualifiers: Chronic kidney disease stage: stage 3 (moderate) Chronic kidney disease stage 3 subtype: stage 3b (GFR 30-44) Qualified Code(s): N18.32 - Chronic kidney disease, stage 3b Code(s): N18.9 - Chronic kidney disease, unspecified Status: Acute Assessment and Plan: Chronic, Stable Avoid nephrotoxins Will reduced dose of Lasix due to worsening GFR (6) Atrial fibrillation with RVR: Code(s): I48.91 - Unspecified atrial fibrillation Status: Acute Assessment and Plan: 05/30 received IV amiodarone and 05/31 started on amiodarone drip 05/31 in normal sinus rhythm in 80s with IV access issues so IV amiodarone discontinued after discussion with Cardiology Cardiology to formulate long-term plan to address atrial fibrillation Subjective Date/time seen: 05/31/23 10:40 Interval history: Patient states that she can not take this anymore. She is tired. She could not sleep due to multiple IV attempts. Had elevated heart rate with atrial fibrillation last night. Now in sinus rhythm. Denied chest pain. Does have shortness of breath with any exertion. Cough. Influenza A. Denied GI or complaints. Eating well. Ate all of her breakfast. Review of Systems Review of Systems: All systems reviewed & are unremarkable except as noted in HPI and below Exam Narrative: SKIN: Multiple ecchymoses on bilateral forearms. HEENT: PERRL, sclerae nonicteric, pharyngeal mucosa pink and intact NECK: No JVD CHEST: Normal effort. Diffuse rhonchi with scattered fine crackles. HEART: NL S1/S2, regular, no murmur ABDOMEN: BS+, soft, nontender, no mass, no bruits EXTREMITIES: No cyanosis, edema, or clubbing NEUROLOGIC: CN intact and symmetric to inspection. MUSCULOSKELETAL: Tone and strength symmetric. PSYCH: Alert. Oriented to person, place, and time. Objective Data Vital Signs Vital Signs: Vital Signs - 24 hr 05/30/23 10:43 05/30/23 11:28 05/30/23 14:30 Temperature 97.2 F L Pulse Rate 102 H 91 96 Respiratory Rate 14 16 18 Blood Pressure 115/78 104/65 Pulse Oximetry 95 97 Oxygen Delivery Oxygen Flow Rate 05/30/23 14:39 05/30/23 10:50 05/30/23 12:00 Temperature Pulse Rate 93 89 Respiratory Rate 18 Blood Pressure Pulse Oximetry 97 Oxygen Delivery Nasal Cannula Oxygen Flow Rate 1 05/30/23 16:00 05/30/23 17:11 05/30/23 20:08 Temperature 97.8 F 98 F Pulse Rate 101 H 98 145 H Respiratory Rate 17 16 Blood Pressure 104/68 96/60 L Pulse Oximetry 99 97 Oxygen Delivery Oxygen Flow Rate 05/30/23 20:43 05/30/23 20:00 05/30/23 20:30 Temperature 97.9 F Pulse Rate 80 133 H Respiratory Rate 24 H Blood Pressure 97/68 L Pulse Oximetry 95 95 Oxygen Delivery Nasal Cannula Oxygen Flow Rate 2 05/30/23 22:39 05/30/23 22:11 05/30/23 23:51 Temperature 97.5 F L 97.7 F Pulse Rate 148 H 96 127 H Respiratory Rate 24 H 20 Bloo
--- NOTE | 2023-05-31 12:36 | PCPTNOTE ---
Pt getting a line placed and with MD at 10:20, will return at later time to attempt reevaluation.
[2023-06-01] VITALS (25 sets, daily range): BP systolic 96–121; BP diastolic 59–72; PULSE 83–104; RESP 16–24; TEMP 36.3–36.8; O2SAT 92–100
[2023-06-01] MEDS: IPRATROPIUM 0.5 MG/ALBUTEROL SULFATE 2.5 MG AMPUL.NEB 3 ML INHALATION ×4 (00:55→19:56)
[2023-06-01 04:47] LABS: Basophils Absolute Auto 0.1 K/mm3 (0.0-0.1); Eosinophils Absolute Auto 0.2 K/mm3 (0-0.3); Eosinophils Percent Auto 2.5 % (0-4.4); Hematocrit 41.7 % (37.0-47.0); Hemoglobin 12.7 g/dL (12.0-15.0); Immature Granulocyte Absolute 0.04 K/mm3 (0.00-0.031); Immature Granulocyte Percent A 0.6 % (0-0.5); Lymphocytes Absolute Auto 0.94 K/mm3 (0.9-3.2); Lymphocytes Percent Auto 13.7 % (18.3-44.2); Mean Corpuscular HGB Conc 30.5 g/dl (32-36); Mean Corpuscular Hemoglobin 30.6 pg (26-34); Mean Corpuscular Volume 100.5 fl (80-100); Mean Platelet Volume 9.8 fl (7.4-10.4); Monocytes Absolute Auto 0.7 K/mm3 (0.1-0.6); Monocytes Percent Auto 10.1 % (2.6-8.5); Neutrophils Absolute Auto 4.9 K/mm3 (1.3-6.7); Neutrophils Percent Auto 72.1 % (45.5-73.1); Platelet Count Result 341 k/mm3 (150-375); Red Blood Count 4.15 M/mm3 (4.2-5.4); Red Cell Distribution Width 17.9 % (11.5-14.5); White Blood Count 6.9 K/mm3 (4.5-10.0)
[2023-06-01 05:00] LABS: Alanine Aminotransferase 9 U/L (6-35); Albumin Level 2.9 g/dL (3.5-5.1); Alkaline Phosphatase 114 U/L (38-126); Anion Gap 7 mmol/L (8-16); Aspartate Amino Transferase 23 U/L (14-36); Bilirubin,Total 0.9 mg/dL (0.2-1.3); Blood Urea Nitrogen 23 mg/dL (7-17); Calcium 8.2 mg/dL (8.4-10.2); Carbon Dioxide 24 mmol/L (22-30); Chloride 106 mmol/L (98-107); Estimated CRCL calculation 37 ml/min; Estimated Glomerular Filt Rate 37; Glucose 87 mg/dL (65-110); Potassium 3.4 mmol/L (3.4-5.0); Sodium 137 mmol/L (137-145)
[2023-06-01] MEDS: LEVOTHYROXINE SODIUM 75 MCG TABLET PO (06:12)
[2023-06-01] MEDS: CHOLECALCIFEROL 1,000 UNITS TABLET 1000 UNITS PO (11:01)
[2023-06-01] MEDS: CYANOCOBALAMIN 1,000 MCG TABLET 1000 MCG PO (11:02)
[2023-06-01] MEDS: EMPAGLIFLOZIN 10 MG TABLET PO (11:02)
[2023-06-01] MEDS: LIDOCAINE 5% PATCH 2 PATCH TRANSDERM (11:02)
[2023-06-01] MEDS: OSELTAMIVIR PHOSPHATE 30 MG CAPSULE PO ×2 (11:02→20:34)
[2023-06-01] MEDS: PANTOPRAZOLE 40 MG TABLET PO (11:02)
[2023-06-01] MEDS: FUROSEMIDE 40 MG TABLET PO (11:03)
--- NOTE | 2023-06-01 12:19 | PM.IMPN ---
Progress Note: A&P Assessment and Plan (1) Acute respiratory failure with hypoxia: Code(s): J96.01 - Acute respiratory failure with hypoxia Status: Acute Assessment and Plan: Resolved. Off oxygen. 06/01 Oseltamivir day 09/13 (2) Acute exacerbation of congestive heart failure: Code(s): I50.9 - Heart failure, unspecified Status: Acute Assessment and Plan: Over-diuresis with soft blood pressures earlier. Received IV saline. Now discontinued (05/31). Switched to p.o. Lasix 05/31 (3) Right heart failure due to pulmonary hypertension: Code(s): I27.29 - Other secondary pulmonary hypertension; I50.810 - Right heart failure, unspecified Status: Acute Assessment and Plan: Chronic, stable Supplemental oxygen as needed ECHO 02/01 with PulmHTN, severe RV enlargement (4) Influenza: Code(s): J11.1 - Influenza due to unidentified influenza virus with other respiratory manifestations Status: Acute Assessment and Plan: Completed 5 days of oseltamivir started on 05/28 (5) Chronic kidney disease: Qualifiers: Chronic kidney disease stage: stage 3 (moderate) Chronic kidney disease stage 3 subtype: stage 3b (GFR 30-44) Qualified Code(s): N18.32 - Chronic kidney disease, stage 3b Code(s): N18.9 - Chronic kidney disease, unspecified Status: Acute Assessment and Plan: Chronic, Stable Avoid nephrotoxins 06/01 creatinine 1.4 (6) Atrial fibrillation with RVR: Code(s): I48.91 - Unspecified atrial fibrillation Status: Acute Assessment and Plan: 05/30 received IV amiodarone and 05/31 started on amiodarone drip 05/31 in normal sinus rhythm in 80s with IV access issues so IV amiodarone discontinued after discussion with Cardiology 06/01 remains in NSR off amio Subjective Date/time seen: 06/01/23 12:19 Interval history: Feeling much better today. Slept much better. Still has dry cough but did not interfere with her sleep. Only complaint is mild aching and ankles. Denied chest pain. Does have shortness of breath with any exertion. Denied GI or complaints. Eating well. Ate all of her breakfast and lunch. Review of Systems Review of Systems: All systems reviewed & are unremarkable except as noted in HPI and below Exam Narrative: SKIN: Multiple ecchymoses on bilateral forearms. HEENT: PERRL, sclerae nonicteric, pharyngeal mucosa pink and intact NECK: No JVD CHEST: Normal effort. Diffuse rhonchi with scattered fine crackles most prominent and left lower lobe. HEART: NL S1/S2, regular, soft systolic ejection murmur right upper sternal border ABDOMEN: BS+, soft, nontender, no mass, no bruits EXTREMITIES: No cyanosis, edema, or clubbing NEUROLOGIC: CN intact and symmetric to inspection. MUSCULOSKELETAL: Tone and strength symmetric. PSYCH: Alert. Oriented to person, place, and time. Objective Data Vital Signs Vital Signs: Vital Signs - 24 hr 05/31/23 13:30 05/31/23 13:40 05/31/23 15:30 Temperature Pulse Rate 86 82 Respiratory Rate 18 18 Blood Pressure Pulse Oximetry Oxygen Delivery Room Air Oxygen Flow Rate Fraction of Inspired Oxygen 05/31/23 15:51 05/31/23 14:00 05/31/23 16:00 Temperature 97.8 F Pulse Rate 88 82 86 Respiratory Rate 16 Blood Pressure 121/70 Pulse Oximetry 93 Oxygen Delivery Oxygen Flow Rate Fraction of Inspired Oxygen 05/31/23 18:00 05/31/23 20:00 05/31/23 20:35 Temperature 97.6 F Pulse Rate 91 93 96 Respiratory Rate 16 18 Blood Pressure 104/62 Pulse Oximetry 91 94 Oxygen Delivery Room Air Oxygen Flow Rate Fraction of Inspired Oxygen 21 05/31/23 20:35 05/31/23 20:00 05/31/23 22:00 Temperature Pulse Rate 96 93 92 Respiratory Rate 18 Blood Pressure Pulse Oximetry Oxygen Delivery Oxygen Flow Rate Fraction of Inspired Oxygen 06/01/23 00:00 06/01/23 00:00 06/01/23 00:55 Temperature 97.5 F
--- NOTE | 2023-06-01 14:32 | PM.PNCARD ---
Progress Note: A&P Assessment and Plan (1) Atrial fibrillation with RVR: Code(s): I48.91 - Unspecified atrial fibrillation Status: Acute (2) Pulmonary hypertension: Code(s): I27.20 - Pulmonary hypertension, unspecified Status: Acute Plan 73-year-old lady with severe pulmonary hypertension related to her interstitial lung disease. She developed atrial fibrillation with RVR on the basis of this yesterday and was treated overnight with intravenous amiodarone. This is been stopped she is maintaining sinus rhythm. Will start her on a low-dose of flecainide today in hopes of maintaining sinus rhythm. Undoubtedly her atrial fibrillation is triggered by her underlying interstitial lung disease and severe pulmonary hypertension. Her echocardiogram demonstrates very good left ventricular systolic function but essentially all of the typical findings of significant pulmonary hypertension. Overall prognosis is quite limited Dre May MD [facility] Subjective Date/time seen: Date of service: 06/01/23 14:32 Interval history: Admitted with respiratory failure secondary to influenza A, and interstitial lung disease (planning on seeing pulmonary hypertension specialist at [place] later this month). Cardiology follow-up for acute on chronic heart failure, right and left-sided. History of severe pulmonary hypertension secondary to interstitial lung disease. Started on furosemide 40 mg IV push b.i.d. and Jardiance. Also has history of moderate aortic stenosis followed by Dr. Duff and severe tricuspid regurgitation. Date of service 05/29/2023: Activity, ?this is no way to live. ? Systolic BP 99-121 mmHg. Not much diuresis by I's and O's, but pt thinks she is urinating more than usual. Declined CPAP last night. Date of service 05/30/23: Patient feels like she is urinating a lot, but by her I's and O's, only ~200cc fluid balance negative for today. Date of service 06/01/2023: The patient is clinically stable still maintaining sinus rhythm. Intravenous amiodarone stopped yesterday. No active cardiac problems today. . Exam Const: General: cooperative, healthy appearing and comfortable; No confusion Orientation/consciousness: oriented to person, patient oriented x3 and No confusion Other: Pleasant older lady on 2 L nasal cannula, daughter at the bedside. Patient's history is a little rambling and disjointed at times but daughter provides additional details. Not in any distress. HENMT: Mouth: Yes moist mucous membranes Eyes: General: appearance normal, both eyes and all related structures EOM: EOMs intact bilaterally Neck: Neck: supple and No no JVD (Jugular venous pulsations noted) Thyroid: thyroid normal Carotids: no bruits Resp: Effort & Inspection: normal respiratory effort Auscultation: crackles and rales (Coarse rales throughout all lung harris) Other: Coarse rales throughout Cardio: Rate: regular rate Rhythm: regular rhythm Heart sounds: Murmur heart sound present (3/6 early systolic murmur upper sternal border, 2/6 systolic murmur LLSB) Other: 3/6 systolic murmur upper sternal borders and left sternal border GI: Inspection: normal to inspection Skin: General skin exam: normal color and no rashes or lesions noted Wounds: no wounds Neuro: General: oriented to person, patient oriented x3 and No confusion Extrem: Right lower extremity: edema Left lower extremity: edema Other: Mild lower extremity edema, also edema of the posterior thighs, buttocks, lower sacrum Psych: Appearance: grossly normal Mental Status: mental status grossly normal Objective Data Vital Signs Vital Signs: Vital Signs - 24 hr 05/31/23 15:30 05/31/23 15:51 05/31/23 16:00 Temperature 36.6 C Pulse Rate 88 86 Respiratory Rate 16 Blood Pressure 121/70 Pulse Oximetry 93 Oxygen Delivery Room Air Oxygen Flow Rate Fraction of Inspired Oxygen 05/31/23 18:00 05/31/23 2
--- NOTE | 2023-06-01 14:51 | PCPTNOTE ---
Attempted to see patient at 1300, family present. Returned at 1451 and pt declined to participate in therapy stating her knees and ankles hurt, that she had already been up in the chair all morning, and verbalized concern with all her medical issues. Educated patient the more she is out of bed the faster she would get better and back to normal. Continued to decline therapy services. Encouraged to participate with therapy tomorrow
[2023-06-01] MEDS: FLECAINIDE ACETATE 50 MG TABLET PO ×2 (18:23→20:34)
[2023-06-01] MEDS: ACETAMINOPHEN 325 MG TABLET 650 MG PO (20:33)
[2023-06-02] VITALS (24 sets, daily range): BP systolic 104–112; BP diastolic 60–76; PULSE 78–103; RESP 18–24; TEMP 36.2–36.7; O2SAT 93–100
[2023-06-02] MEDS: IPRATROPIUM 0.5 MG/ALBUTEROL SULFATE 2.5 MG AMPUL.NEB 3 ML INHALATION ×4 (02:01→19:30)
[2023-06-02 04:22] LABS: Basophils Absolute Auto 0.1 K/mm3 (0.0-0.1); Basophils Percent Auto 0.7 % (0.2-1.2); Eosinophils Absolute Auto 0.1 K/mm3 (0-0.3); Eosinophils Percent Auto 0.6 % (0-4.4); Hematocrit 43.4 % (37.0-47.0); Hemoglobin 12.8 g/dL (12.0-15.0); Immature Granulocyte Absolute 0.11 K/mm3 (0.00-0.031); Immature Granulocyte Percent A 1.3 % (0-0.5); Immature Platelet Fraction Pct 3.1 % (0.9-11.2); Lymphocytes Absolute Auto 0.77 K/mm3 (0.9-3.2); Lymphocytes Percent Auto 9.1 % (18.3-44.2); Mean Corpuscular HGB Conc 29.5 g/dl (32-36); Mean Corpuscular Hemoglobin 30.7 pg (26-34); Mean Corpuscular Volume 104.1 fl (80-100); Mean Platelet Volume 9.9 fl (7.4-10.4); Monocytes Absolute Auto 0.9 K/mm3 (0.1-0.6); Monocytes Percent Auto 10.3 % (2.6-8.5); Neutrophils Absolute Auto 6.6 K/mm3 (1.3-6.7); Platelet Count Result 340 k/mm3 (150-375); Red Blood Count 4.17 M/mm3 (4.2-5.4); Red Cell Distribution Width 18.1 % (11.5-14.5); White Blood Count 8.4 K/mm3 (4.5-10.0)
[2023-06-02 04:36] LABS: Alanine Aminotransferase 11 U/L (6-35); Albumin Level 2.9 g/dL (3.5-5.1); Alkaline Phosphatase 108 U/L (38-126); Anion Gap 5 mmol/L (8-16); Aspartate Amino Transferase 23 U/L (14-36); Bilirubin,Total 1.4 mg/dL (0.2-1.3); Blood Urea Nitrogen 26 mg/dL (7-17); Calcium 8.3 mg/dL (8.4-10.2); Carbon Dioxide 27 mmol/L (22-30); Chloride 104 mmol/L (98-107); Estimated CRCL calculation 34 ml/min; Estimated Glomerular Filt Rate 34; Glucose 97 mg/dL (65-110); Potassium 3.5 mmol/L (3.4-5.0); Sodium 136 mmol/L (137-145)
[2023-06-02 05:29] LABS: Platelet Clumps Present; Platelet Estimate Adequate (Adequate)
[2023-06-02 05:30] LABS: Anisocytosis 1+ (NORMAL); Large Platelets Present
[2023-06-02 05:31] LABS: Burr Cells 1+ (NORMAL); Schistocytes None Seen (NORMAL)
[2023-06-02] MEDS: ACETAMINOPHEN 325 MG TABLET 650 MG PO ×3 (05:45→17:39)
[2023-06-02] MEDS: LEVOTHYROXINE SODIUM 75 MCG TABLET PO (05:51)
[2023-06-02] MEDS: PANTOPRAZOLE 40 MG TABLET PO (08:32)
[2023-06-02] MEDS: CYANOCOBALAMIN 1,000 MCG TABLET 1000 MCG PO (08:32)
[2023-06-02] MEDS: CHOLECALCIFEROL 1,000 UNITS TABLET 1000 UNITS PO (08:32)
[2023-06-02] MEDS: FLECAINIDE ACETATE 50 MG TABLET PO ×2 (08:33→20:46)
[2023-06-02] MEDS: FUROSEMIDE 40 MG TABLET PO (08:33)
[2023-06-02] MEDS: LIDOCAINE 5% PATCH 2 PATCH TRANSDERM (08:33)
[2023-06-02] MEDS: EMPAGLIFLOZIN 10 MG TABLET PO (08:33)
--- NOTE | 2023-06-02 11:34 | PM.PNCARD ---
Progress Note: A&P Assessment and Plan (1) Atrial fibrillation with RVR: Code(s): I48.91 - Unspecified atrial fibrillation Status: Acute Plan 73-year-old lady with: Severe pulmonary hypertension with interstitial lung disease and atrial flutter. Patient has been started flecainide which so far is maintaining sinus rhythm. Patient's long-term prognosis is quite limited with this severe pulmonary hypertension. Severe knee pain this morning, alerted nurse/care team. The patient's distress. Dre May MD [facility] Subjective Date/time seen: Date of service: 06/02/23 11:34 Interval history: Admitted with respiratory failure secondary to influenza A, and interstitial lung disease (planning on seeing pulmonary hypertension specialist at [place] later this month). Cardiology follow-up for acute on chronic heart failure, right and left-sided. History of severe pulmonary hypertension secondary to interstitial lung disease. Started on furosemide 40 mg IV push b.i.d. and Jardiance. Also has history of moderate aortic stenosis followed by Dr. Duff and severe tricuspid regurgitation. Date of service 05/29/2023: Activity, ?this is no way to live. ? Systolic BP 99-121 mmHg. Not much diuresis by I's and O's, but pt thinks she is urinating more than usual. Declined CPAP last night. Date of service 05/30/23: Patient feels like she is urinating a lot, but by her I's and O's, only ~200cc fluid balance negative for today. Date of service 06/01/2023: The patient is clinically stable still maintaining sinus rhythm. Intravenous amiodarone stopped yesterday. No active cardiac problems today. Date of service 06/02/2023: The patient is in severe knee pain at this time the knee has an ice pack on it she is in significant pain with this. No cardiac symptoms. Sinus rhythm on telemetry no evidence of recurrent atrial arrhythmias in the last 48 hours. . Exam Const: General: cooperative, healthy appearing and comfortable; No confusion Orientation/consciousness: oriented to person, patient oriented x3 and No confusion Other: Pleasant older lady on 2 L nasal cannula, daughter at the bedside. Patient's history is a little rambling and disjointed at times but daughter provides additional details. Not in any distress. HENMT: Mouth: Yes moist mucous membranes Eyes: General: appearance normal, both eyes and all related structures EOM: EOMs intact bilaterally Neck: Neck: supple and No no JVD (Jugular venous pulsations noted) Thyroid: thyroid normal Carotids: no bruits Resp: Effort & Inspection: normal respiratory effort Auscultation: crackles and rales (Coarse rales throughout all lung harris) Other: Coarse rales throughout Cardio: Rate: regular rate Rhythm: regular rhythm Heart sounds: Murmur heart sound present (3/6 early systolic murmur upper sternal border, 2/6 systolic murmur LLSB) Other: 3/6 systolic murmur upper sternal borders and left sternal border GI: Inspection: normal to inspection Skin: General skin exam: normal color and no rashes or lesions noted Wounds: no wounds Neuro: General: oriented to person, patient oriented x3 and No confusion Extrem: Right lower extremity: edema Left lower extremity: edema Other: Mild lower extremity edema, also edema of the posterior thighs, buttocks, lower sacrum Psych: Appearance: grossly normal Mental Status: mental status grossly normal Objective Data Vital Signs Vital Signs: Vital Signs - 24 hr 06/01/23 12:00 06/01/23 13:34 06/01/23 13:34 Temperature 36.8 C Pulse Rate 94 95 Respiratory Rate 16 18 Blood Pressure 118/70 Pulse Oximetry 92 96 Oxygen Delivery Nasal Cannula Oxygen Flow Rate 3 06/01/23 13:47 06/01/23 12:00 06/01/23 16:00 Temperature Pulse Rate 96 Respiratory Rate 18 Blood Pressure Pulse Oximetry 96 96 Oxygen Delivery Nasal Cannula Nasal Cannula Oxygen Flow Rate 3 3 06/01/23 12:00
--- NOTE | 2023-06-02 16:40 | PM.IMPN ---
Progress Note: A&P Assessment and Plan (1) Acute respiratory failure with hypoxia: Code(s): J96.01 - Acute respiratory failure with hypoxia Status: Acute Assessment and Plan: Resolved. Off oxygen. 06/01 Oseltamivir day 09/13 (2) Acute exacerbation of congestive heart failure: Code(s): I50.9 - Heart failure, unspecified Status: Acute Assessment and Plan: Over-diuresis with soft blood pressures earlier. Received IV saline. Now discontinued (05/31). Switched to p.o. Lasix 05/31 (3) Right heart failure due to pulmonary hypertension: Code(s): I27.29 - Other secondary pulmonary hypertension; I50.810 - Right heart failure, unspecified Status: Acute Assessment and Plan: Chronic, stable Supplemental oxygen as needed ECHO 02/01 with PulmHTN, severe RV enlargement (4) Influenza: Code(s): J11.1 - Influenza due to unidentified influenza virus with other respiratory manifestations Status: Acute Assessment and Plan: Completed 5 days of oseltamivir started on 05/28 (5) Chronic kidney disease: Qualifiers: Chronic kidney disease stage: stage 3 (moderate) Chronic kidney disease stage 3 subtype: stage 3b (GFR 30-44) Qualified Code(s): N18.32 - Chronic kidney disease, stage 3b Code(s): N18.9 - Chronic kidney disease, unspecified Status: Acute Assessment and Plan: Chronic, Stable Avoid nephrotoxins 06/01 creatinine 1.4 (6) Atrial fibrillation with RVR: Code(s): I48.91 - Unspecified atrial fibrillation Status: Acute Assessment and Plan: 05/30 received IV amiodarone and 05/31 started on amiodarone drip 05/31 in normal sinus rhythm in 80s with IV access issues so IV amiodarone discontinued after discussion with Cardiology 06/01 remains in NSR off amio 06/02/23: Monitor (7) Influenza A: Code(s): J10.1 - Influenza due to other identified influenza virus with other respiratory manifestations Status: Acute (8) Right knee pain: Code(s): M25.561 - Pain in right knee Status: Acute Assessment and Plan: Toradol, solumedrol, Dilaudid Will add Orthopedics if failure to improve Time Spent With Patient Time with patient: 25 - 35 minutes Subjective Date/time seen: 06/02/23 16:40 Interval history: Admitted with respiratory failure secondary to influenza A, and interstitial lung disease (planning on seeing pulmonary hypertension specialist at [place] later this month). Cardiology follow-up for acute on chronic heart failure, right and left-sided. History of severe pulmonary hypertension secondary to interstitial lung disease. Started on furosemide 40 mg IV push b.i.d. and Jardiance. Also has history of moderate aortic stenosis followed by Dr. Duff and severe tricuspid regurgitation. Date of service 05/29/2023: Activity, ?this is no way to live. ? Systolic BP 99-121 mmHg. Not much diuresis by I's and O's, but pt thinks she is urinating more than usual. Declined CPAP last night. Date of service 05/30/23: Patient feels like she is urinating a lot, but by her I's and O's, only ~200cc fluid balance negative for today. Date of service 06/01/2023: The patient is clinically stable still maintaining sinus rhythm. Intravenous amiodarone stopped yesterday. No active cardiac problems today. Date of service 06/02/2023: The patient is in severe knee pain at this time the knee has an ice pack on it she is in significant pain with this. No cardiac symptoms. Sinus rhythm on telemetry no evidence of recurrent atrial arrhythmias in the last 48 hours. . Review of Systems Review of Systems: Twelve systems were reviewed. On exam she has a large amount of bruising on the face from a fall a week and a half ago. She has become increasingly weak recently and has had a couple of falls. She is seeing a sales account specialist for blistering on her lower extremities. No history of DVT or PE. Except as documented, all other syst
[2023-06-02] MEDS: KETOROLAC 15 MG/ML VIAL (*BKC) IV PUSH (17:40)
[2023-06-02] MEDS: methylPREDNISolone SOD SUCC 40 MG VIAL IV PUSH (17:41)
[2023-06-02] MEDS: HYDROmorphone HCL INJ (*CRX) 1 MG/ML SYR 0.5 MG IV PUSH (20:47)
[2023-06-03] VITALS (26 sets, daily range): BP systolic 94–122; BP diastolic 53–76; PULSE 80–101; RESP 18–22; TEMP 35.7–36.8; O2SAT 90–99
[2023-06-03] MEDS: IPRATROPIUM 0.5 MG/ALBUTEROL SULFATE 2.5 MG AMPUL.NEB 3 ML INHALATION ×4 (01:05→19:47)
[2023-06-03 04:55] LABS: Basophils Percent Auto 0.1 % (0.2-1.2); Hematocrit 40.5 % (37.0-47.0); Hemoglobin 12.8 g/dL (12.0-15.0); Immature Granulocyte Absolute 0.05 K/mm3 (0.00-0.031); Immature Granulocyte Percent A 0.7 % (0-0.5); Lymphocytes Absolute Auto 0.37 K/mm3 (0.9-3.2); Mean Corpuscular HGB Conc 31.6 g/dl (32-36); Mean Corpuscular Hemoglobin 31.1 pg (26-34); Mean Corpuscular Volume 98.5 fl (80-100); Mean Platelet Volume 9.4 fl (7.4-10.4); Monocytes Absolute Auto 0.2 K/mm3 (0.1-0.6); Monocytes Percent Auto 2.8 % (2.6-8.5); Neutrophils Absolute Auto 6.7 K/mm3 (1.3-6.7); Neutrophils Percent Auto 91.4 % (45.5-73.1); Platelet Count Result 310 k/mm3 (150-375); Red Blood Count 4.11 M/mm3 (4.2-5.4); Red Cell Distribution Width 17.6 % (11.5-14.5); White Blood Count 7.4 K/mm3 (4.5-10.0)
[2023-06-03 05:31] LABS: Alanine Aminotransferase 12 U/L (6-35); Albumin Level 2.8 g/dL (3.5-5.1); Alkaline Phosphatase 88 U/L (38-126); Anion Gap 9 mmol/L (8-16); Aspartate Amino Transferase 19 U/L (14-36); Bilirubin,Total 1.4 mg/dL (0.2-1.3); Blood Urea Nitrogen 31 mg/dL (7-17); Calcium 8.3 mg/dL (8.4-10.2); Carbon Dioxide 25 mmol/L (22-30); Chloride 102 mmol/L (98-107); Estimated CRCL calculation 35 ml/min; Estimated Glomerular Filt Rate 34; Glucose 144 mg/dL (65-110); Potassium 4.4 mmol/L (3.4-5.0); Sodium 136 mmol/L (137-145)
[2023-06-03] MEDS: LEVOTHYROXINE SODIUM 75 MCG TABLET PO (07:01)
[2023-06-03] MEDS: guaiFENesin/DEXTROMETHORPHAN 10 ML UDC PO (09:20)
[2023-06-03] MEDS: FLECAINIDE ACETATE 50 MG TABLET PO ×2 (09:21→20:57)
[2023-06-03] MEDS: CYANOCOBALAMIN 1,000 MCG TABLET 1000 MCG PO (09:21)
[2023-06-03] MEDS: FUROSEMIDE 40 MG TABLET PO (09:23)
[2023-06-03] MEDS: EMPAGLIFLOZIN 10 MG TABLET PO (09:23)
[2023-06-03] MEDS: CHOLECALCIFEROL 1,000 UNITS TABLET 1000 UNITS PO (09:23)
[2023-06-03] MEDS: LIDOCAINE 5% PATCH 2 PATCH TRANSDERM (09:24)
[2023-06-03] MEDS: PANTOPRAZOLE 40 MG TABLET PO (09:24)
[2023-06-03] MEDS: ACETAMINOPHEN 325 MG TABLET 650 MG PO (09:35)
[2023-06-03 10:07] LABS: Uric Acid 10.4 mg/dL (2.5-7.5)
--- NOTE | 2023-06-03 15:18 | PM.IMPN ---
Progress Note: A&P Assessment and Plan (1) Acute respiratory failure with hypoxia: Code(s): J96.01 - Acute respiratory failure with hypoxia Status: Acute Assessment and Plan: Resolved. Off oxygen. 06/01 Oseltamivir day 09/13 (2) Acute exacerbation of congestive heart failure: Code(s): I50.9 - Heart failure, unspecified Status: Acute Assessment and Plan: Over-diuresis with soft blood pressures earlier. Received IV saline. Now discontinued (05/31). Switched to p.o. Lasix 05/31 (3) Right heart failure due to pulmonary hypertension: Code(s): I27.29 - Other secondary pulmonary hypertension; I50.810 - Right heart failure, unspecified Status: Acute Assessment and Plan: Chronic, stable Supplemental oxygen as needed ECHO 02/01 with PulmHTN, severe RV enlargement (4) Influenza: Code(s): J11.1 - Influenza due to unidentified influenza virus with other respiratory manifestations Status: Acute Assessment and Plan: Completed 5 days of oseltamivir started on 05/28 (5) Chronic kidney disease: Qualifiers: Chronic kidney disease stage: stage 3 (moderate) Chronic kidney disease stage 3 subtype: stage 3b (GFR 30-44) Qualified Code(s): N18.32 - Chronic kidney disease, stage 3b Code(s): N18.9 - Chronic kidney disease, unspecified Status: Acute Assessment and Plan: Chronic, Stable Avoid nephrotoxins 06/01 creatinine 1.4 (6) Atrial fibrillation with RVR: Code(s): I48.91 - Unspecified atrial fibrillation Status: Acute Assessment and Plan: 05/30 received IV amiodarone and 05/31 started on amiodarone drip 05/31 in normal sinus rhythm in 80s with IV access issues so IV amiodarone discontinued after discussion with Cardiology 06/01 remains in NSR off amio 06/02/23: Monitor (7) Influenza A: Code(s): J10.1 - Influenza due to other identified influenza virus with other respiratory manifestations Status: Acute (8) Right knee pain: Code(s): M25.561 - Pain in right knee Status: Acute Assessment and Plan: Toradol, solumedrol, Dilaudid Will add Orthopedics if failure to improve XR r/knee: Moderate joint compartment degenerative change, worst in the medial compartment. Uric acid: 10 (9) Hyperuricemia: Code(s): E79.0 - Hyperuricemia without signs of inflammatory arthritis and tophaceous disease Status: Acute Time Spent With Patient Time with patient: 25 - 35 minutes Subjective Date/time seen: 06/03/23 15:18 Interval history: Admitted with respiratory failure secondary to influenza A, and interstitial lung disease (planning on seeing pulmonary hypertension specialist at [place] later this month). Cardiology follow-up for acute on chronic heart failure, right and left-sided. History of severe pulmonary hypertension secondary to interstitial lung disease. Started on furosemide 40 mg IV push b.i.d. and Jardiance. Also has history of moderate aortic stenosis followed by Dr. Duff and severe tricuspid regurgitation. Date of service 05/29/2023: Activity, ?this is no way to live. ? Systolic BP 99-121 mmHg. Not much diuresis by I's and O's, but pt thinks she is urinating more than usual. Declined CPAP last night. Date of service 05/30/23: Patient feels like she is urinating a lot, but by her I's and O's, only ~200cc fluid balance negative for today. Date of service 06/01/2023: The patient is clinically stable still maintaining sinus rhythm. Intravenous amiodarone stopped yesterday. No active cardiac problems today. Date of service 06/02/2023: The patient is in severe knee pain at this time the knee has an ice pack on it she is in significant pain with this. No cardiac symptoms. Sinus rhythm on telemetry no evidence of recurrent atrial arrhythmias in the last 48 hours. 06/03/23: Seen and examined; Right knee pain with residual pain; improved with Toradol yesterday. XR shows DJD, Uric acid is
[2023-06-03] MEDS: KETOROLAC 15 MG/ML VIAL (*BKC) IV PUSH (16:12)
[2023-06-03] MEDS: COLCHICINE 0.6 MG TABLET PO (20:57)
[2023-06-03] MEDS: HYDROmorphone HCL INJ (*CRX) 1 MG/ML SYR 0.5 MG IV PUSH (20:58)
[2023-06-04] VITALS (19 sets, daily range): BP systolic 96–121; BP diastolic 68–73; PULSE 82–96; RESP 16–24; TEMP 35.8–36.9; O2SAT 90–99
[2023-06-04] MEDS: IPRATROPIUM 0.5 MG/ALBUTEROL SULFATE 2.5 MG AMPUL.NEB 3 ML INHALATION ×4 (01:06→19:50)
--- NOTE | 2023-06-04 01:26 | PC.NURSE ---
Transferred to 3 med/tele via bed. No change from previous assessment. Report called to 3 med/rn tele prior to transport.
[2023-06-04] MEDS: LEVOTHYROXINE SODIUM 75 MCG TABLET PO (05:18)
[2023-06-04 06:42] LABS: Alanine Aminotransferase 10 U/L (6-35); Albumin Level 2.9 g/dL (3.5-5.1); Alkaline Phosphatase 119 U/L (38-126); Anion Gap 8 mmol/L (8-16); Aspartate Amino Transferase 19 U/L (14-36); Blood Urea Nitrogen 39 mg/dL (7-17); Calcium 8.5 mg/dL (8.4-10.2); Carbon Dioxide 25 mmol/L (22-30); Chloride 103 mmol/L (98-107); Estimated CRCL calculation 29 ml/min; Estimated Glomerular Filt Rate 28; Glucose 106 mg/dL (65-110); Potassium 3.5 mmol/L (3.4-5.0); Sodium 136 mmol/L (137-145)
[2023-06-04 06:58] LABS: Basophils Percent Auto 0.2 % (0.2-1.2); Eosinophils Percent Auto 0.1 % (0-4.4); Hematocrit 41.2 % (37.0-47.0); Hemoglobin 12.4 g/dL (12.0-15.0); Immature Granulocyte Absolute 0.05 K/mm3 (0.00-0.031); Immature Granulocyte Percent A 0.5 % (0-0.5); Lymphocytes Absolute Auto 0.86 K/mm3 (0.9-3.2); Lymphocytes Percent Auto 8.9 % (18.3-44.2); Mean Corpuscular HGB Conc 30.1 g/dl (32-36); Mean Corpuscular Hemoglobin 30.4 pg (26-34); Mean Platelet Volume 9.9 fl (7.4-10.4); Monocytes Absolute Auto 0.9 K/mm3 (0.1-0.6); Monocytes Percent Auto 9.2 % (2.6-8.5); Neutrophils Absolute Auto 7.9 K/mm3 (1.3-6.7); Neutrophils Percent Auto 81.1 % (45.5-73.1); Platelet Count Result 363 k/mm3 (150-375); Red Blood Count 4.08 M/mm3 (4.2-5.4); Red Cell Distribution Width 17.6 % (11.5-14.5); White Blood Count 9.7 K/mm3 (4.5-10.0)
[2023-06-04] MEDS: COLCHICINE 0.6 MG TABLET PO ×2 (08:57→20:12)
[2023-06-04] MEDS: FUROSEMIDE 40 MG TABLET PO (08:57)
[2023-06-04] MEDS: PANTOPRAZOLE 40 MG TABLET PO (08:57)
[2023-06-04] MEDS: CHOLECALCIFEROL 1,000 UNITS TABLET 1000 UNITS PO (08:57)
[2023-06-04] MEDS: CYANOCOBALAMIN 1,000 MCG TABLET 1000 MCG PO (08:57)
[2023-06-04] MEDS: EMPAGLIFLOZIN 10 MG TABLET PO (08:57)
[2023-06-04] MEDS: LIDOCAINE 5% PATCH 2 PATCH TRANSDERM (08:58)
[2023-06-04] MEDS: FLECAINIDE ACETATE 50 MG TABLET PO ×2 (09:31→20:12)
[2023-06-04] MEDS: BISACODYL 10 MG SUPPOSITORY RECTAL (10:41)
[2023-06-04] MEDS: polyethylene glycoL 3350 17 GM POWD.PACK PO (10:41)
[2023-06-04] MEDS: DOCUSATE SODIUM 100 MG CAPSULE PO (10:41)
--- NOTE | 2023-06-04 10:47 | PM.PNCARD ---
Progress Note: A&P Assessment and Plan (1) Atrial fibrillation with RVR: Code(s): I48.91 - Unspecified atrial fibrillation Status: Acute Assessment and Plan: Continue flecainide. (2) Pulmonary hypertension: Code(s): I27.20 - Pulmonary hypertension, unspecified Status: Acute Assessment and Plan: Severe. Without factorial underlying interstitial lung disease is likely a major culprit. Followed by Pulmonary (3) Hypokalemia: Code(s): E87.6 - Hypokalemia Status: Acute Assessment and Plan: Will replace KCL 40 mEq p.o. x1 today (4) Chronic kidney disease, stage 3b: Code(s): N18.32 - Chronic kidney disease, stage 3b Status: Acute Assessment and Plan: Creatinine 1.8 today Subjective Date/time seen: 06/04/23 10:47 Interval history: Admitted with respiratory failure secondary to influenza A, and interstitial lung disease (planning on seeing pulmonary hypertension specialist at [place] later this month). Cardiology follow-up for acute on chronic heart failure, right and left-sided. History of severe pulmonary hypertension secondary to interstitial lung disease. Started on furosemide 40 mg IV push b.i.d. and Jardiance. Also has history of moderate aortic stenosis followed by Dr. Duff and severe tricuspid regurgitation. Date of service 05/29/2023: Activity, ?this is no way to live. ? Systolic BP 99-121 mmHg. Not much diuresis by I's and O's, but pt thinks she is urinating more than usual. Declined CPAP last night. Date of service 05/30/23: Patient feels like she is urinating a lot, but by her I's and O's, only ~200cc fluid balance negative for today. Date of service 06/01/2023: The patient is clinically stable still maintaining sinus rhythm. Intravenous amiodarone stopped yesterday. No active cardiac problems today. Date of service 06/02/2023: The patient is in severe knee pain at this time the knee has an ice pack on it she is in significant pain with this. No cardiac symptoms. Sinus rhythm on telemetry no evidence of recurrent atrial arrhythmias in the last 48 hours. Date of service 06/04/2023: Has baseline shortness of breath but no chest pain . Review of Systems Review of Systems: SOB with minor activity, none at rest. No chest pain, abdominal problems, bleeding, pain Constitutional: Constitutional: Denies fever(s) Eyes: Eyes: Reports no additional eye complaints ENT: Denies epistaxis and Denies nasal congestion Cardiovascular: Cardiovascular: Denies chest pain, Reports pedal edema, Reports leg edema, Denies lightheadedness, Reports dyspnea and Reports dyspnea on exertion Respiratory: Respiratory: Denies chest congestion, Reports cough (dry cough for 1 week), Reports dyspnea and Reports dyspnea on exertion Gastrointestinal: Gastrointestinal: Denies abdominal pain and Denies hematochezia Genitourinary: Genitourinary: Reports no additional female genitourinary complaints Musculoskeletal: Musculoskeletal: Reports myalgias (Chronic, I'm 73 years old! ) Integumentary/Breasts: Skin/Breast: Reports system reviewed and no additional complaints, except as docu Neurologic: Reports system reviewed and no additional complaints, except as documented, Denies behavioral changes and Denies confusion Psychiatric: Psychiatric: Denies behavioral changes and Denies confusion Exam Const: General: cooperative and comfortable; No confusion Orientation/consciousness: oriented to person, patient oriented x3 and No confusion HENMT: Mouth: Yes moist mucous membranes Eyes: General: appearance normal, both eyes and all related structures Neck: Neck: supple and No no JVD (Jugular venous pulsations noted) Carotids: no bruits Resp: Effort & Inspection: normal respiratory effort Auscultation: crackles and rales (Coarse rales throughout all lung harris) Other: Coarse rales throughout Cardio: Rate: tachycardic Rhythm: regular rhythm He
[2023-06-04] MEDS: POTASSIUM CHLORIDE 20 MEQ ER TABLET 40 MEQ PO (12:03)
--- NOTE | 2023-06-04 16:11 | PM.IMPN ---
Progress Note: A&P Assessment and Plan (1) Acute respiratory failure with hypoxia: Code(s): J96.01 - Acute respiratory failure with hypoxia Status: Acute Assessment and Plan: Resolved. Off oxygen. 06/01 Oseltamivir day 09/13 (2) Acute exacerbation of congestive heart failure: Code(s): I50.9 - Heart failure, unspecified Status: Acute Assessment and Plan: Over-diuresis with soft blood pressures earlier. Received IV saline. Now discontinued (05/31). Switched to p.o. Lasix 05/31 (3) Right heart failure due to pulmonary hypertension: Code(s): I27.29 - Other secondary pulmonary hypertension; I50.810 - Right heart failure, unspecified Status: Acute Assessment and Plan: Chronic, stable Supplemental oxygen as needed ECHO 02/01 with PulmHTN, severe RV enlargement (4) Influenza: Code(s): J11.1 - Influenza due to unidentified influenza virus with other respiratory manifestations Status: Acute Assessment and Plan: Completed 5 days of oseltamivir started on 05/28 (5) Chronic kidney disease: Qualifiers: Chronic kidney disease stage: stage 3 (moderate) Chronic kidney disease stage 3 subtype: stage 3b (GFR 30-44) Qualified Code(s): N18.32 - Chronic kidney disease, stage 3b Code(s): N18.9 - Chronic kidney disease, unspecified Status: Acute Assessment and Plan: Chronic, Stable Avoid nephrotoxins 06/01 creatinine 1.4 (6) Atrial fibrillation with RVR: Code(s): I48.91 - Unspecified atrial fibrillation Status: Acute Assessment and Plan: 05/30 received IV amiodarone and 05/31 started on amiodarone drip 05/31 in normal sinus rhythm in 80s with IV access issues so IV amiodarone discontinued after discussion with Cardiology 06/01 remains in NSR off amio 06/02/23: Monitor (7) Influenza A: Code(s): J10.1 - Influenza due to other identified influenza virus with other respiratory manifestations Status: Acute Assessment and Plan: Improved symptoms (8) Right knee pain: Code(s): M25.561 - Pain in right knee Status: Acute Assessment and Plan: Toradol, solumedrol, Dilaudid Will add Orthopedics if failure to improve XR r/knee: Moderate joint compartment degenerative change, worst in the medial compartment. Uric acid: 10 On Colchicine (9) Hyperuricemia: Code(s): E79.0 - Hyperuricemia without signs of inflammatory arthritis and tophaceous disease Status: Acute Assessment and Plan: On colchicine Plan Will DC tomorrow to [facility] I called the P2P line provided but was keep on hold for minutes without any response. Plan is to appeal [facility]; I believe the patient will do well in [facility] Time Spent With Patient Time with patient: 25 - 35 minutes Subjective Date/time seen: 06/04/23 16:11 Interval history: Admitted with respiratory failure secondary to influenza A, and interstitial lung disease (planning on seeing pulmonary hypertension specialist at [place] later this month). Cardiology follow-up for acute on chronic heart failure, right and left-sided. History of severe pulmonary hypertension secondary to interstitial lung disease. Started on furosemide 40 mg IV push b.i.d. and Jardiance. Also has history of moderate aortic stenosis followed by Dr. Duff and severe tricuspid regurgitation. Date of service 05/29/2023: Activity, ?this is no way to live. ? Systolic BP 99-121 mmHg. Not much diuresis by I's and O's, but pt thinks she is urinating more than usual. Declined CPAP last night. Date of service 05/30/23: Patient feels like she is urinating a lot, but by her I's and O's, only ~200cc fluid balance negative for today. Date of service 06/01/2023: The patient is clinically stable still maintaining sinus rhythm. Intravenous amiodarone stopped yesterday. No active cardiac problems today. Date of service 06/02/2023: The patient is in severe knee pain at this time the knee has an ice
[2023-06-05] VITALS (19 sets, daily range): BP systolic 113–118; BP diastolic 55–74; PULSE 80–100; RESP 16–20; TEMP 36.1–36.4; O2SAT 91–95
[2023-06-05] MEDS: IPRATROPIUM 0.5 MG/ALBUTEROL SULFATE 2.5 MG AMPUL.NEB 3 ML INHALATION ×4 (02:22→19:29)
[2023-06-05] MEDS: LEVOTHYROXINE SODIUM 75 MCG TABLET PO (05:47)
[2023-06-05 06:46] LABS: Basophils Absolute Auto 0.1 K/mm3 (0.0-0.1); Basophils Percent Auto 0.9 % (0.2-1.2); Eosinophils Absolute Auto 0.1 K/mm3 (0-0.3); Eosinophils Percent Auto 0.6 % (0-4.4); Hematocrit 44.7 % (37.0-47.0); Hemoglobin 13.3 g/dL (12.0-15.0); Immature Granulocyte Absolute 0.06 K/mm3 (0.00-0.031); Immature Granulocyte Percent A 0.7 % (0-0.5); Lymphocytes Absolute Auto 0.92 K/mm3 (0.9-3.2); Lymphocytes Percent Auto 11.2 % (18.3-44.2); Mean Corpuscular HGB Conc 29.8 g/dl (32-36); Mean Corpuscular Hemoglobin 30.3 pg (26-34); Mean Corpuscular Volume 101.8 fl (80-100); Monocytes Absolute Auto 0.7 K/mm3 (0.1-0.6); Monocytes Percent Auto 8.5 % (2.6-8.5); Neutrophils Absolute Auto 6.4 K/mm3 (1.3-6.7); Neutrophils Percent Auto 78.1 % (45.5-73.1); Platelet Count Result 368 k/mm3 (150-375); Red Blood Count 4.39 M/mm3 (4.2-5.4); Red Cell Distribution Width 17.8 % (11.5-14.5); White Blood Count 8.2 K/mm3 (4.5-10.0)
[2023-06-05 07:11] LABS: Alanine Aminotransferase 13 U/L (6-35); Albumin Level 3.2 g/dL (3.5-5.1); Alkaline Phosphatase 145 U/L (38-126); Anion Gap 8 mmol/L (8-16); Aspartate Amino Transferase 24 U/L (14-36); Bilirubin,Total 0.9 mg/dL (0.2-1.3); Blood Urea Nitrogen 39 mg/dL (7-17); Calcium 8.7 mg/dL (8.4-10.2); Carbon Dioxide 25 mmol/L (22-30); Chloride 103 mmol/L (98-107); Estimated CRCL calculation 31 ml/min; Estimated Glomerular Filt Rate 29; Glucose 86 mg/dL (65-110); Potassium 3.8 mmol/L (3.4-5.0); Sodium 136 mmol/L (137-145)
[2023-06-05 07:50] LABS: Hypochromasia 1+ (NORMAL); Platelet Estimate Adequate (Adequate); Schistocytes Rare (NORMAL)
[2023-06-05] MEDS: DOCUSATE SODIUM 100 MG CAPSULE PO (09:02)
[2023-06-05] MEDS: CHOLECALCIFEROL 1,000 UNITS TABLET 1000 UNITS PO (09:02)
[2023-06-05] MEDS: FUROSEMIDE 40 MG TABLET PO (09:03)
[2023-06-05] MEDS: EMPAGLIFLOZIN 10 MG TABLET PO (09:03)
[2023-06-05] MEDS: PANTOPRAZOLE 40 MG TABLET PO (09:04)
[2023-06-05] MEDS: FLECAINIDE ACETATE 50 MG TABLET PO ×2 (09:04→21:39)
[2023-06-05] MEDS: polyethylene glycoL 3350 17 GM POWD.PACK PO (09:05)
[2023-06-05] MEDS: LIDOCAINE 5% PATCH 2 PATCH TRANSDERM (09:05)
[2023-06-05] MEDS: COLCHICINE 0.6 MG TABLET PO ×2 (09:05→21:39)
[2023-06-05] MEDS: CYANOCOBALAMIN 1,000 MCG TABLET 1000 MCG PO (09:05)
--- NOTE | 2023-06-05 09:33 | PCNWS ---
Weekly nutritional screen. Patient is tolerating current heart healthy diet with adequate intake 75-100%. No weight loss reported. No nutritional needs at this time.
--- NOTE | 2023-06-05 10:39 | PM.PNCARD ---
Progress Note: A&P Assessment and Plan (1) Atrial fibrillation with RVR: Code(s): I48.91 - Unspecified atrial fibrillation Status: Acute Assessment and Plan: Continue flecainide. (2) Pulmonary hypertension: Code(s): I27.20 - Pulmonary hypertension, unspecified Status: Acute Assessment and Plan: Severe. Without factorial underlying interstitial lung disease is likely a major culprit. Followed by Pulmonary (3) Hypokalemia: Code(s): E87.6 - Hypokalemia Status: Acute Assessment and Plan: potassium improved to 3.8 today (4) Chronic kidney disease, stage 3b: Code(s): N18.32 - Chronic kidney disease, stage 3b Status: Acute Assessment and Plan: Creatinine 1.8 today. No changes to regimen Subjective Date/time seen: 06/05/23 10:39 Interval history: Admitted with respiratory failure secondary to influenza A, and interstitial lung disease (planning on seeing pulmonary hypertension specialist at [place] later this month). Cardiology follow-up for acute on chronic heart failure, right and left-sided. History of severe pulmonary hypertension secondary to interstitial lung disease. Started on furosemide 40 mg IV push b.i.d. and Jardiance. Also has history of moderate aortic stenosis followed by Dr. Duff and severe tricuspid regurgitation. Date of service 05/29/2023: Activity, ?this is no way to live. ? Systolic BP 99-121 mmHg. Not much diuresis by I's and O's, but pt thinks she is urinating more than usual. Declined CPAP last night. Date of service 05/30/23: Patient feels like she is urinating a lot, but by her I's and O's, only ~200cc fluid balance negative for today. Date of service 06/01/2023: The patient is clinically stable still maintaining sinus rhythm. Intravenous amiodarone stopped yesterday. No active cardiac problems today. Date of service 06/02/2023: The patient is in severe knee pain at this time the knee has an ice pack on it she is in significant pain with this. No cardiac symptoms. Sinus rhythm on telemetry no evidence of recurrent atrial arrhythmias in the last 48 hours. Date of service 06/04/2023: Has baseline shortness of breath but no chest pain Date of service 06/05/2023: Still has baseline shortness of breath. No chest pain. Legs are very tender to touch . Review of Systems Review of Systems: SOB with minor activity, none at rest. No chest pain, abdominal problems, bleeding, pain Constitutional: Constitutional: Denies fever(s) Eyes: Eyes: Reports no additional eye complaints ENT: Denies epistaxis and Denies nasal congestion Cardiovascular: Cardiovascular: Denies chest pain, Reports pedal edema, Reports leg edema, Denies lightheadedness, Reports dyspnea and Reports dyspnea on exertion Respiratory: Respiratory: Denies chest congestion, Reports cough (dry cough for 1 week), Reports dyspnea and Reports dyspnea on exertion Gastrointestinal: Gastrointestinal: Denies abdominal pain and Denies hematochezia Genitourinary: Genitourinary: Reports no additional female genitourinary complaints Musculoskeletal: Musculoskeletal: Reports myalgias (Chronic, I'm 73 years old! ) Integumentary/Breasts: Skin/Breast: Reports system reviewed and no additional complaints, except as docu Neurologic: Reports system reviewed and no additional complaints, except as documented, Denies behavioral changes and Denies confusion Psychiatric: Psychiatric: Denies behavioral changes and Denies confusion Exam Const: General: cooperative, healthy appearing and comfortable; No confusion Orientation/consciousness: oriented to person, patient oriented x3 and No confusion Other: Pleasant older lady on 2 L nasal cannula, daughter at the bedside. Patient's history is a little rambling and disjointed at times but daughter provides additional details. Not in any distress. HENMT: Mouth: Yes moist mucous membranes Eyes: General: appearance
--- NOTE | 2023-06-05 13:52 | PM.DS ---
DS: Admitting Diagnosis Discharge Date 06/06/23 Admitting Diagnosis Acute hypoxic respiratory failure DS: Discharge Diagnosis Discharge Diagnosis (1) Hyperuricemia: Code(s): E79.0 - Hyperuricemia without signs of inflammatory arthritis and tophaceous disease Status: Acute Assessment and Plan: On Colchicine (2) Right knee pain: Code(s): M25.561 - Pain in right knee Status: Acute Assessment and Plan: DJD with elevated Uricemia Improved with Toradol and Colchicine (3) Acute respiratory failure with hypoxia: Code(s): J96.01 - Acute respiratory failure with hypoxia Status: Acute Assessment and Plan: Wean oxygen On Furosemide, Oxygen, IS (4) Acute exacerbation of congestive heart failure: Code(s): I50.9 - Heart failure, unspecified Status: Acute Assessment and Plan: Cardiology consulted; recommend Furosemide (5) Influenza A: Code(s): J10.1 - Influenza due to other identified influenza virus with other respiratory manifestations Status: Acute Assessment and Plan: s/p Oseltamivir (6) Hypoxia: Code(s): R09.02 - Hypoxemia Status: Acute Assessment and Plan: Oxygen with wean Plan Assessment and Plan (1) Acute respiratory failure with hypoxia: ?Code(s): J96.01 - Acute respiratory failure with hypoxia ?Status:?Acute ?Assessment and Plan: Resolved.? Off oxygen. 06/01 Oseltamivir day 09/13 (2) Acute exacerbation of congestive heart failure: ?Code(s): I50.9 - Heart failure, unspecified ?Status:?Acute ?Assessment and Plan: Over-diuresis with soft blood pressures earlier.? Received IV saline.? Now discontinued (05/31). Switched to p.o. Lasix 05/31 (3) Right heart failure due to pulmonary hypertension: ?Code(s): I27.29 - Other secondary pulmonary hypertension; I50.810 - Right heart failure, unspecified ?Status:?Acute ?Assessment and Plan: Chronic, stable Supplemental oxygen as needed ECHO 02/01 with PulmHTN, severe RV enlargement (4) Influenza: ?Code(s): J11.1 - Influenza due to unidentified influenza virus with other respiratory manifestations ?Status:?Acute ?Assessment and Plan: Completed 5 days of oseltamivir started on 05/28 (5) Chronic kidney disease: ?Qualifiers: ?Chronic kidney disease stage:?stage 3 (moderate)??Chronic kidney disease stage 3 subtype:?stage 3b (GFR 30-44)? Qualified Code(s):?N18.32 - Chronic kidney disease, stage 3b ?Code(s): N18.9 - Chronic kidney disease, unspecified ?Status:?Acute ?Assessment and Plan: Chronic, Stable Avoid nephrotoxins 06/01 creatinine 1.4 (6) Atrial fibrillation with RVR: ?Code(s): I48.91 - Unspecified atrial fibrillation ?Status:?Acute ?Assessment and Plan: 05/30 received IV amiodarone and 05/31 started on amiodarone drip 05/31 in normal sinus rhythm in 80s with IV access issues so IV amiodarone discontinued after discussion with Cardiology 06/01 remains in NSR off amio 06/02/23: Monitor 06/05/23: Will DC on Flecainide (7) Influenza A: ?Code(s): J10.1 - Influenza due to other identified influenza virus with other respiratory manifestations ?Status:?Acute ?Assessment and Plan: Improved symptoms (8) Right knee pain: ?Code(s): M25.561 - Pain in right knee ?Status:?Acute ?Assessment and Plan: Toradol, solumedrol, Dilaudid Will add Orthopedics if failure to improve XR r/knee:?Moderate joint compartment degenerative change, worst in the medial compartment. Uric acid: 10 On Colchicine (9) Hyperuricemia: ?Code(s): E79.0 - Hyperuricemia without signs of inflammatory arthritis and tophaceous disease ?Status:?Acute ?Assessment and Plan: On colchicine 10. ILD: slated for visits with Rheumatologists tomorrow, 06/06/23. Slated to be discharged to the [facility] but will rather be discharged home tomorrow, 06/06/23, so they may make
[2023-06-06] MEDS: IPRATROPIUM 0.5 MG/ALBUTEROL SULFATE 2.5 MG AMPUL.NEB 3 ML INHALATION (01:45)
[2023-06-06 01:47] VITALS: PULSE 82
[2023-06-06 01:52] VITALS: PULSE 83
--- NOTE | 2023-06-06 06:13 | PC.NURSE ---
patient dressed and up to w/c awaiting lease picker from family
[2023-06-06] MEDS: LEVOTHYROXINE SODIUM 75 MCG TABLET PO (06:32)
[2023-06-06 06:48] LABS: Basophils Absolute Auto 0.1 K/mm3 (0.0-0.1); Eosinophils Absolute Auto 0.2 K/mm3 (0-0.3); Eosinophils Percent Auto 2.2 % (0-4.4); Hematocrit 41.1 % (37.0-47.0); Hemoglobin 12.9 g/dL (12.0-15.0); Immature Granulocyte Absolute 0.06 K/mm3 (0.00-0.031); Immature Granulocyte Percent A 0.7 % (0-0.5); Lymphocytes Absolute Auto 1.06 K/mm3 (0.9-3.2); Lymphocytes Percent Auto 12.9 % (18.3-44.2); Mean Corpuscular HGB Conc 31.4 g/dl (32-36); Mean Corpuscular Hemoglobin 30.9 pg (26-34); Mean Corpuscular Volume 98.3 fl (80-100); Monocytes Absolute Auto 0.6 K/mm3 (0.1-0.6); Monocytes Percent Auto 7.4 % (2.6-8.5); Neutrophils Absolute Auto 6.2 K/mm3 (1.3-6.7); Neutrophils Percent Auto 75.8 % (45.5-73.1); Platelet Count Result 388 k/mm3 (150-375); Red Blood Count 4.18 M/mm3 (4.2-5.4); Red Cell Distribution Width 17.9 % (11.5-14.5); White Blood Count 8.2 K/mm3 (4.5-10.0)
[2023-06-06 07:05] LABS: Alanine Aminotransferase 13 U/L (6-35); Alkaline Phosphatase 148 U/L (38-126); Anion Gap 6 mmol/L (8-16); Aspartate Amino Transferase 22 U/L (14-36); Bilirubin,Total 1.1 mg/dL (0.2-1.3); Blood Urea Nitrogen 35 mg/dL (7-17); Calcium 8.7 mg/dL (8.4-10.2); Carbon Dioxide 28 mmol/L (22-30); Chloride 105 mmol/L (98-107); Estimated CRCL calculation 35 ml/min; Estimated Glomerular Filt Rate 34; Glucose 97 mg/dL (65-110); Potassium 3.7 mmol/L (3.4-5.0); Sodium 139 mmol/L (137-145)
== END 2023-06-06 07:02 | DRG 291 ==
LOC: ANHED 18:03 → ANHIMU 19:37 → ANH2MED 05-29 17:48 → ANHIMU 05-30 21:51 → ANH3MEDSUR 06-04 01:35
PROVIDERS: Physician Assistant; Admitting Provider Student in an Organized Health Care Education/Training Program; Emergency Provider Emergency Medicine; PCP Internal Medicine; Visit Provider Internal Medicine
DX: I13.0 Hypertensive heart and chronic kidney disease with heart failure and stage 1 through stage 4 chronic kidney disease, or unspecified chronic kidney disease (principal); I50.31 Acute diastolic (congestive) heart failure; J96.01 Acute respiratory failure with hypoxia; J84.9 Interstitial pulmonary disease, unspecified; J10.1 Influenza due to other identified influenza virus with other respiratory manifestations; I50.813 Acute on chronic right heart failure; I27.20 Pulmonary hypertension, unspecified; I35.0 Nonrheumatic aortic (valve) stenosis; I36.1 Nonrheumatic tricuspid (valve) insufficiency; I48.91 Unspecified atrial fibrillation; N18.32 Chronic kidney disease, stage 3b; K31.819 Angiodysplasia of stomach and duodenum without bleeding; E87.6 Hypokalemia; E79.0 Hyperuricemia without signs of inflammatory arthritis and tophaceous disease; M25.561 Pain in right knee; E03.9 Hypothyroidism, unspecified; G47.33 Obstructive sleep apnea (adult) (pediatric); S00.83XD Contusion of other part of head, subsequent encounter; W19.XXXD Unspecified fall, subsequent encounter
CPT/HCPCS: 36415; 71046; 73560; 80048; 80053; 81001; 83735; 83880; 84443; 84484; 84550; 85025; 85027; 85055; 85610; 85730; 87637; 93005; 93306; 93970; 94640; 96374; 96376; 97110; 97116; 97161; 97164; 97165; 97530; 97535; 99285; A9270; G0378; J0282; J1160; J1170; J1885; J1940; J2920; J7030; J7050